=== PATIENT | female | born 1950 | race Caucasian/White ===

== ENCOUNTER → 2016-04-15 | Outpatient (CLI) | payer BC ==
--- NOTE | 2016-04-15 10:19 | DIAGNOSTIC IMAGING REPORT ---
Venous Doppler right leg RIGHT VENOUS DOPP LOWER EXT UNILAT CLINICAL HISTORY: R LOWER EXT DVT F/U Right deep venous thrombosis TECHNIQUE: Venous Doppler COMPARISON STUDY: 01/11/2016 FINDINGS: Current study shows no evidence for deep venous thrombosis. There continues be nonocclusive thrombus within the right superficial femoral vein and its proximal to mid aspect. IMPRESSION: 1. No evidence for acute deep venous thrombosis. 2. Chronic superficial thrombophlebitis right leg Electronically signed by: Sundar Golden M.D. 04/15/2016 10:18 AM Dictated Date/Time: 04/15/2016 10:16 AM
== END | disposition home or self-care (01) ==
LOC: C.ULTR 09:46
PROVIDERS: ATTEND Family Medicine
DX: I80.01 Phlebitis and thrombophlebitis of superficial vessels of right lower extremity (principal)

== ENCOUNTER → 2016-07-16 | Outpatient (CLI) | payer BC ==
--- NOTE | 2016-07-16 10:39 | DIAGNOSTIC IMAGING REPORT ---
RIGHT LOWER EXTREMITY VENOUS DOPPLER CLINICAL HISTORY: Follow up right lower extremity deep venous thrombus. COMPARISON STUDY: Right lower extremity venous Doppler April 15, 2016. TECHNIQUE: Sonography of the deep venous system of the right lower extremity was performed. Compression and augmentation were evaluated. FINDINGS: Nonocclusive thrombus within the right femoral vein is similar to exam of April 15, 2016. The vessels are not expanded. No additional sites of deep venous thrombus were identified within the right lower extremity.. IMPRESSION: 1. No evidence of acute deep venous thrombus within the right lower extremity. 2. No significant change in nonocclusive chronic thrombus within the right femoral vein since prior exam of April 15, 2016. Electronically signed by: Maik Valencia M.D. 07/16/2016 10:38 AM Dictated Date/Time: 07/16/2016 10:36 AM
== END | disposition home or self-care (01) ==
LOC: C.ULTR 09:51
PROVIDERS: ATTEND Family Medicine
DX: I82.4Z1 Acute embolism and thrombosis of unspecified deep veins of right distal lower extremity (principal)

== ENCOUNTER → 2016-10-04 | Outpatient (CLI) | payer BC ==
--- NOTE | 2016-10-04 13:34 | MAMMOGRAPHY REPORT ---
BILATERAL DIGITAL SCREENING MAMMOGRAM TOMOSYNTHESIS WITH CAD: 10/04/2016 CLINICAL HISTORY: Routine screening. Patient has no complaints. TECHNIQUE: Breast tomosynthesis in addition to standard 2D mammography was performed. Current study was also evaluated with a Computer Aided Detection (CAD) system. COMPARISON: Comparison is made to exams dated: 10/03/2015 mammogram, 09/30/2014 mammogram, 09/29/2013 m ammogram, 09/28/2012 mammogram, 09/25/2011 mammogram, and 09/06/2010 mammogram - [facility] enter. BREAST COMPOSITION: The tissue of both breasts is almost entirely fatty. FINDINGS: No suspicious masses, calcifications, or areas of architectural distortion are noted in ei ther breast. There has been no significant interval change compared to prior exams. IMPRESSION: ACR BI-RADS CATEGORY 1: NEGATIVE There is no mammographic evidence of malignancy. A 1 year screening mammogram is recommended. The pa tient will receive written notification of the results. Approximately 10% of breast cancers are not detected with mammography. A negative mammographic report should not delay biopsy if a clinically suggestive mass is present. Lupe Birmingham M.D. /:10/04/2016 12:30:28 Production Internship: Audrey HAMILTON(Nazario)(La[place])([place]), [facility] letter sent: Normal 1/2 BI-RADS Code: ACR BI-RADS Category 1: Negative
== END | disposition home or self-care (01) ==
LOC: C.MAMM 10:56
PROVIDERS: ATTEND Family Medicine
DX: Z12.31 Encounter for screening mammogram for malignant neoplasm of breast (principal)

== ENCOUNTER → 2016-11-28 | Outpatient (CLI) | payer BC | END | disposition home or self-care (01) | LOC: C.LABSPEC 11:03 | PROVIDERS: ATTEND Family Medicine | DX: N39.0 Urinary tract infection, site not specified (principal) ==

== ENCOUNTER → 2016-12-30 | Outpatient (CLI) | payer BC ==
--- NOTE | 2016-12-30 10:26 | DIAGNOSTIC IMAGING REPORT ---
ULTRASOUND RIGHT LOWER EXTREMITY VENOUS CLINICAL HISTORY: Follow-up right lower extremity deep venous thrombosis. COMPARISON STUDY: Right lower extremity venous ultrasound dated 07/16/2016. TECHNIQUE: Real-time, grayscale, and color Doppler sonography of the deep veins of the right lower extremity was performed from the inguinal crease to the calf. Compression and augmentation were utilized. FINDINGS: There is unchanged appearance of chronic appearing and nonocclusive deep venous thrombosis identified in the right common femoral vein and the right popliteal vein. The common femoral vein is patent and normally compressible. The greater saphenous vein and the profunda femoris vein at the junction with the common femoral vein are clear. The visualized calf veins are patent. IMPRESSION: There is unchanged appearance of nonocclusive and chronic appearing deep venous thrombosis in the right lower extremity as above compared to 07/16/2016. Electronically signed by: Gil Cuellar M.D. 12/30/2016 10:25 AM Dictated Date/Time: 12/30/2016 10:23 AM
== END | disposition home or self-care (01) ==
LOC: C.ULTR 09:45
PROVIDERS: ATTEND Family Medicine
DX: I82.401 Acute embolism and thrombosis of unspecified deep veins of right lower extremity (principal)

== ENCOUNTER → 2017-01-13 | Outpatient (CLI) | payer OTHER ==
[2017-01-13 12:04] LABS: BASO ABS # 0.07 K/uL (0-0.2); COMPLETE YES; EOS % 2.8 %; HEMATOCRIT 37.4 % (37-47); IG% 0.4 %; LYMPH % 26.9 %; LYMPH ABS # 1.92 K/uL (1.2-3.4); MEAN CELL VOLUME 91.4 fL (80-100); MEAN CORPUSCULAR HEMOGLOBIN 30.8 pg (25-34); MEAN CORPUSCULAR HGB CONC 33.7 g/dl (32-36); MEAN PLATELET VOLUME 11.1 fL (7.4-10.4); NEUT % 61.9 %; PLATELET COUNT 231 K/uL (130-400); RED BLOOD COUNT 4.09 M/uL (4.2-5.4); WHITE BLOOD COUNT 7.13 K/uL (4.8-10.8)
[2017-01-13 12:15] LABS: ESTIMATED AVERAGE GLUCOSE 114 mg/dl; HA1C FLAG Normal (Normal)
[2017-01-13 12:42] LABS: AST/SGOT 22 U/L (15-37); BLOOD UREA NITROGEN 22 mg/dl (7-18); BUN/CREATININE RATIO 17.4 (10-20); CALCIUM 9.9 mg/dl (8.5-10.1); CARBON DIOXIDE 31 mmol/L (21-32); CHLORIDE 100 mmol/L (98-107); CHOLESTEROL 160 mg/dl (0-200); CHOLESTEROL/HDL RATIO 1.9; CREATININE 1.24 mg/dl (0.60-1.20); GLUCOSE 93 mg/dl (70-99); HDL CHOLESTEROL 84 mg/dl; LDL CHOLESTEROL CALCULATED 61 mg/dl; POTASSIUM 3.9 mmol/L (3.5-5.1); SODIUM 133 mmol/L (136-145); TRIGLYCERIDES 76 mg/dl (0-150); URIC ACID 8.9 mg/dl (2.6-7.2); VERY LOW DENSITY LIPOPROT CALC 15 mg/dl
[2017-01-13 12:51] LABS: ALKALINE PHOSPHATASE 66 U/L (45-117); ALT/SGPT 34 U/L (12-78); TOTAL IRON BINDING CAPACITY 261 mcg/dl (250-450)
== END | disposition home or self-care (01) ==
LOC: C.LAB1850 10:32
PROVIDERS: ATTEND Family Medicine
DX: R73.09 Other abnormal glucose (principal); E55.9 Vitamin D deficiency, unspecified; D51.9 Vitamin B12 deficiency anemia, unspecified; E78.9 Disorder of lipoprotein metabolism, unspecified; R53.83 Other fatigue

== ENCOUNTER 2017-05-19 11:10 | Emergency (ER) | payer BC ==
[2017-05-19 11:26] VITALS: TEMP 36.7; Ht 165.1 cm
[2017-05-19] MEDS ORDERED: ASCOTAB PO (12:41)
[2017-05-19] MEDS ORDERED: ASPI81TA28 PO (12:41)
[2017-05-19] MEDS ORDERED: OMEG10007 PO (12:41)
[2017-05-19] MEDS ORDERED: BUPR-79 PO (12:41)
[2017-05-19] MEDS ORDERED: CALC600T9 PO (12:41)
[2017-05-19] MEDS ORDERED: MISCCAP52 PO (12:41)
[2017-05-19] MEDS ORDERED: DICL-201 PO (12:41)
[2017-05-19] MEDS ORDERED: LISI-788 PO (12:41)
[2017-05-19] MEDS ORDERED: LEVO175T PO (12:41)
[2017-05-19] MEDS ORDERED: COEN120C PO (12:41)
[2017-05-19] MEDS ORDERED: FLUO20CA35 PO (12:41)
[2017-05-19] MEDS ORDERED: RIVA1TAB4 PO (12:41)
[2017-05-19] MEDS ORDERED: POTA10TA PO (12:41)
[2017-05-19] MEDS ORDERED: ATOR10TA82 PO (12:41)
[2017-05-19] MEDS ORDERED: SPECTAB57 PO (12:41)
[2017-05-19] MEDS ORDERED: MoRPHine SULFATE 4 MG/ML 1 ML CARP\\VIAL IV STA (13:41)
[2017-05-19] MEDS ORDERED: ONDANSETRON INJ 2 MG/ML 2 ML VIAL IV STA (13:41)
--- NOTE | 2017-05-19 13:41 | EMERGENCY ROOM VISIT NOTE ---
History Report prepared by Hipolito: Jagdeep Lopez Under the Supervision of: Dr. Jan Corbin M.D. First contact with patient: 13:15 Chief Complaint: FALL Stated Complaint: DIZZINESS, NAUSEA, HEAD INJURY, RIB PAIN History of Present Illness The patient is a 67 year old white with a past medical history of hypertension who presents to the Emergency Room with complaints of head pain and dizziness that first onset following a falling episode on Friday afternoon, 2 days ago. The patient states that she suffered a mechanical fall as she was trying to walk down her steps. She fell down 2 stairs and impacted her right ribs on the railing, and the back of her head on the ground. Her rib pain is worsened by deep inhalation. When she woke up this morning she was nauseous and vomited the food she ate for breakfast. The patient is currently complaining of dizziness as well. She is on Xarelto daily as a blood thinner. 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 A total of ten systems were reviewed and were otherwise negative. Past Medical & Surgical Medical Problems: (1) Hypertension Hypertension Family History Omitted secondary to age. Social History Smoking Status: Never Smoker Housing Status: lives with family Occupation Status: retired Current/Historical Medications Scheduled Ascorbic Acid (C 500), 1 TAB PO DAILY Aspirin (Aspirin Ec), 81 MG PO DAILY Atorvastatin (Lipitor), 10 MG PO DAILY Bupropion (Wellbutrin Sr), 150 MG PO BID Calcium Carbonate-Vitamin D (Calcium + D), 2 TAB PO DAILY Coenzyme Q10 (Ubidecarenone) (Co Q-10), 1 CAP PO BID Diclofenac (Voltaren), 75 MG PO DAILY Fish Oil ([place]-3), 1 CAP PO DAILY Fluoxetine (Prozac), 20 MG PO BID Levothyroxine Sodium (Synthroid), 175 MCG PO DAILY Lisinopril/Hctz (Zestoretic 20MG/25MG), 1 TAB PO DAILY Misc Natural Products (Turmeric Curcumin), 1 CAP PO BID Potassium Chloride (K-Tabs), 10 MEQ PO DAILY Rivaroxaban (Xarelto), 20 MG PO DAILY Specialty Vitamins Products (Ultra Woman), 1 TAB PO DAILY Scheduled PRN Oxycodone Immediate Rel Tab (Roxicodone Ir), 5 MG PO Q6H PRN for Pain Allergies Coded Allergies: Penicillins (Unverified Adverse Reaction, Intermediate, ITCHY, 05/19/17) Physical Exam Vital Signs Date Time Temp Pulse Resp B/P (MAP) Pulse Ox O2 Delivery O2 Flow Rate FiO2 05/19/17 17:35 80 24 131/65 96 05/19/17 17:30 80 24 131/65 96 Room Air 05/19/17 16:33 74 24 126/77 92 Room Air 05/19/17 16:15 66 22 121/67 97 Room Air 05/19/17 15:29 63 18 114/78 95 Room Air 05/19/17 14:09 67 05/19/17 14:07 63 19 154/79 94 05/19/17 14:07 96 Room Air 05/19/17 11:26 36.7 66 18 135/83 95 Room Air Physical Exam GENERAL: Awake, alert, well-appearing, NAD HENT: There is mild pain to the right parietal area. EYES: Normal conjunctiva. Sclera non-icteric. NECK: Supple. No nuchal rigidity. FROM. RESPIRATORY: CTAB, no rhonchi, wheezing, crackles CARDIAC: RRR, no MRG ABDOMEN: Soft, NTND, BS+ MSK: No chest wall TTP, no LE edema. There is no midline c-spine TTP, there is mild reproducible right sided rib pain. NEURO: GCS 15, CN 2-12 intact, moves all 4s on command SKIN: No rash or jaundice noted. Medical Decision & Procedures ER Provider Diagnostic Interpretation: Radiology results as stated below per my review and radiologist interpretation: CT SCAN OF THE CERVICAL SPINE CLINICAL HISTORY: Fall. COMPARISON STUDY: No priors. TECHNIQUE: CT scan of the cervical spine is performed from the skull base to the upper thoracic spine. Images are reviewed in the axial, sagittal, and coronal planes. IV contrast was not administered for this examination. A dose lowering technique was utilized adhering to the principles of ALARA. CT DOSE: 3812.99 mGy.cm FINDINGS: Skeletal structures: The skeletal structures are osteopenic. There is no evidence of fracture or subluxation involving the cervical spine. Vertebral body height and alignment are maintained. There is straightening of the cervical lordosis. The odontoid process and lateral masses are intact. The atlantoaxial articulation is preserved noting minimal productive degenerative change. The spinous processes appear intact. There is mild to moderate multilevel cervical spondylosis. Uncovertebral and facet arthropathy. Neural foraminal stenosis at several levels. Intervertebral discs: The disc spaces are well maintained. Central canal: Grossly patent. Soft tissues: The prevertebral and paraspinous soft tissues are within normal limits. Atherosclerotic calcification is noted in the carotid bulbs. Calvarium: The visualized calvarium at the skull base appears intact. Brain parenchyma: Partially visualized brain parenchyma the skull base is within normal limits. Sinuses and mastoids: The visualized paranasal sinuses are clear. The mastoid air cells are well pneumatized. Lung apices: Clear as visualized. IMPRESSION: 1. There is no evidence of fracture or subluxation involving the cervical spine. 2. Osteopenia and mild spondylotic change as above. Electronically signed by: Gil Cuellar M.D. 05/19/2017 4:18 PM Dictated Date/Time: 05/19/2017 4:[address] SCAN OF THE CHEST, ABDOMEN, AND PELVIS WITH IV CONTRAST CLINICAL HISTORY: Trauma. Fall. COMPARISON STUDY: No priors. TECHNIQUE: Following the IV administration of 90 of Optiray 320, CT scan of the chest, abdomen, and pelvis was performed from the thoracic inlet to the proximal femora. Images are reviewed in the axial, sagittal, and coronal planes. IV contrast was administered without complication. Automated dose control exposure was utilized. A dose lowering technique was utilized adhering to the principles of ALARA. The examination is degraded by streak artifact from the patient's arms which could not be elevated above the chest or abdomen. FINDINGS: CHEST: Thyroid: Imaged portions of the thyroid gland are normal in size and attenuation. Thoracic aorta: There is mild atherosclerotic calcification of the thoracic aorta, which is normal in caliber and demonstrates standard 3-vessel arch anatomy. No dissection is seen. Pulmonary vasculature: The pulmonary trunk is normal in caliber. There are no filling defects identified in the central pulmonary vessels to indicate pulmonary embolus. Note that this examination was not protocoled for evaluation of the pulmonary arteries. Heart: The heart is normal in size and configuration, and without pericardial effusion. There are coronary artery calcifications. Lungs and pleural spaces: Evaluation of the lung parenchyma is modestly degraded by motion artifact. Mild emphysema is suggested. There is mild elevation of right hemidiaphragm and bibasilar atelectasis. No airspace consolidation, pleural effusion, or pneumothorax is identified. Mediastinum: There is no mediastinal hematoma or lymphadenopathy. Cristine: Clear. Axillae: There is no axillary lymphadenopathy. Bony thorax: The skeletal structures are osteopenic. There are acute nondistracted right lateral 7th through 9th rib fractures. The remainder of the bony thorax appears intact. No lytic or blastic lesions are identified. ABDOMEN AND PELVIS: Liver: The contrast-enhanced liver is normal in size, contour, and attenuation. There is mild central intrahepatic or ductal dilatation. The hepatic veins and portal veins are patent. Gallbladder: Surgically absent noting clips in the gallbladder fossa. Spleen: Normal in size and attenuation. Pancreas: Unremarkable. Adrenal glands: Unremarkable. Kidneys: The contrast enhanced kidneys demonstrate cortical atrophy and are without hydronephrosis. The kidneys enhance symmetrically. Abdominal vasculature: The abdominal aorta is normal in course and caliber noting moderate atherosclerotic calcification. Stomach and bowel: There is a tiny hiatal hernia. The stomach and duodenum otherwise normal in configuration. No bowel obstruction is seen. There are scattered colonic diverticula without CT evidence of acute diverticulitis. The appendix is well-visualized and normal. Peritoneum: There is no intraperitoneal free air or abdominal ascites. Lymphadenopathy: None. Pelvic viscera: The bladder, uterus, and adnexa are normal as visualized. Skeletal structures: The skeletal structures are osteopenic. The lumbosacral spine and bony pelvis appear intact. There is mild lumbosacral spondylosis. No lytic or blastic lesions are seen. IMPRESSION: 1. There are acute nondistracted right lateral 7th through 9th rib fractures. 2. No additional fracture is seen. 3. The lungs are clear. No pneumothorax is seen. 4. Suspect mild emphysema. 5. There is no evidence of solid organ injury in the abdomen or pelvis. 6. Additional findings as above. Electronically signed by: Gil Cuellar M.D. 05/19/2017 4:29 PM Dictated Date/Time: 05/19/2017 4:[address] SCAN OF THE CHEST, ABDOMEN, AND PELVIS WITH IV CONTRAST CLINICAL HISTORY: Trauma. Fall. COMPARISON STUDY: No priors. TECHNIQUE: Following the IV administration of 90 of Optiray 320, CT scan of the chest, abdomen, and pelvis was performed from the thoracic inlet to the proximal femora. Images are reviewed in the axial, sagittal, and coronal planes. IV contrast was administered without complication. Automated dose control exposure was utilized. A dose lowering technique was utilized adhering to the principles of ALARA. The examination is degraded by streak artifact from the patient's arms which could not be elevated above the chest or abdomen. FINDINGS: CHEST: Thyroid: Imaged portions of the thyroid gland are normal in size and attenuation. Thoracic aorta: There is mild atherosclerotic calcification of the thoracic aorta, which is normal in caliber and demonstrates standard 3-vessel arch anatomy. No dissection is seen. Pulmonary vasculature: The pulmonary trunk is normal in caliber. There are no filling defects identified in the central pulmonary vessels to indicate pulmonary embolus. Note that this examination was not protocoled for evaluation of the pulmonary arteries. Heart: The heart is normal in size and configuration, and without pericardial effusion. There are coronary artery calcifications. Lungs and pleural spaces: Evaluation of the lung parenchyma is modestly degraded by motion artifact. Mild emphysema is suggested. There is mild elevation of right hemidiaphragm and bibasilar atelectasis. No airspace consolidation, pleural effusion, or pneumothorax is identified. Mediastinum: There is no mediastinal hematoma or lymphadenopathy. Cristine: Clear. Axillae: There is no axillary lymphadenopathy. Bony thorax: The skeletal structures are osteopenic. There are acute nondistracted right lateral 7th through 9th rib fractures. The remainder of the bony thorax appears intact. No lytic or blastic lesions are identified. ABDOMEN AND PELVIS: Liver: The contrast-enhanced liver is normal in size, contour, and attenuation. There is mild central intrahepatic or ductal dilatation. The hepatic veins and portal veins are patent. Gallbladder: Surgically absent noting clips in the gallbladder fossa. Spleen: Normal in size and attenuation. Pancreas: Unremarkable. Adrenal glands: Unremarkable. Kidneys: The contrast enhanced kidneys demonstrate cortical atrophy and are without hydronephrosis. The kidneys enhance symmetrically. Abdominal vasculature: The abdominal aorta is normal in course and caliber noting moderate atherosclerotic calcification. Stomach and bowel: There is a tiny hiatal hernia. The stomach and duodenum otherwise normal in configuration. No bowel obstruction is seen. There are scattered colonic diverticula without CT evidence of acute diverticulitis. The appendix is well-visualized and normal. Peritoneum: There is no intraperitoneal free air or abdominal ascites. Lymphadenopathy: None. Pelvic viscera: The bladder, uterus, and adnexa are normal as visualized. Skeletal structures: The skeletal structures are osteopenic. The lumbosacral spine and bony pelvis appear intact. There is mild lumbosacral spondylosis. No lytic or blastic lesions are seen. IMPRESSION: 1. There are acute nondistracted right lateral 7th through 9th rib fractures. 2. No additional fracture is seen. 3. The lungs are clear. No pneumothorax is seen. 4. Suspect mild emphysema. 5. There is no evidence of solid organ injury in the abdomen or pelvis. 6. Additional findings as above. Electronically signed by: Gil Cuellar M.D. 05/19/2017 4:29 PM Dictated Date/Time: 05/19/2017 4:15 PM HEAD WITHOUT CONTRAST (CT) CLINICAL HISTORY: 67 years-old Female with EVALUATE FOR TRAUMA/INJURY. Acute head trauma status post fall TECHNIQUE: Multiple axial CT images of the head were obtained without contrast. A dose lowering technique was utilized adhering to the principles of ALARA. COMPARISON: CT cervical spine of same day FINDINGS: No acute intracranial hemorrhage, midline shift, intracranial mass, hydrocephalus, territorial ischemia or abnormal extra-axial collection. The calvarium is intact. Mastoid air cells are clear. Mild mucosal thickening of the ethmoid air cells. Soft tissues and orbits are unremarkable. IMPRESSION: No acute intracranial abnormality or calvarial fracture. The above report was generated using voice recognition software. It may contain grammatical, syntax or spelling errors. Electronically signed by: Ezra Cruz M.D. 05/19/2017 4:10 PM Dictated Date/Time: 05/19/2017 4:07 PM Laboratory Results 05/19/17 14:03 Red Blood Count 4.17, Mean Corpuscular Volume 89.9, Mean Corpuscular Hemoglobin 31.4, Mean Corpuscular Hemoglobin Concent 34.9, Mean Platelet Volume 10.6, Neutrophils (%) (Auto) 86.5, Lymphocytes (%) (Auto) 9.2, Monocytes (%) (Auto) 3.2, Eosinophils (%) (Auto) 0.4, Basophils (%) (Auto) 0.4, Neutrophils # (Auto) 9.74, Lymphocytes # (Auto) 1.03, Monocytes # (Auto) 0.36, Eosinophils # (Auto) 0.04, Basophils # (Auto) 0.04 05/19/17 14:03 Test 4/9/18 14:03 05/19/17 15:35 White Blood Count 11.24 K/uL (4.8-10.8) Red Blood Count 4.17 M/uL (4.2-5.4) Hemoglobin 13.1 g/dL (12.0-16.0) Hematocrit 37.5 % (37-47) Mean Corpuscular Volume 89.9 fL (80-100) Mean Corpuscular Hemoglobin 31.4 pg (25-34) Mean Corpuscular Hemoglobin Concent 34.9 g/dl (32-36) Platelet Count 241 K/uL (130-400) Mean Platelet Volume 10.6 fL (7.4-10.4) Neutrophils (%) (Auto) 86.5 % Lymphocytes (%) (Auto) 9.2 % Monocytes (%) (Auto) 3.2 % Eosinophils (%) (Auto) 0.4 % Basophils (%) (Auto) 0.4 % Neutrophils # (Auto) 9.74 K/uL (1.4-6.5) Lymphocytes # (Auto) 1.03 K/uL (1.2-3.4) Monocytes # (Auto) 0.36 K/uL (0.11-0.59) Eosinophils # (Auto) 0.04 K/uL (0-0.5) Basophils # (Auto) 0.04 K/uL (0-0.2) RDW Standard Deviation 40.9 fL (36.4-46.3) RDW Coefficient of Variation 12.5 % (11.5-14.5) Immature Granulocyte % (Auto) 0.3 % Immature Granulocyte # (Auto) 0.03 K/uL (0.00-0.02) Prothrombin Time 12.7 SECONDS (9.0-12.0) Prothromb Time International Ratio 1.2 (0.9-1.1) Activated Partial Thromboplast Time 31.2 SECONDS (21.0-31.0) Partial Thromboplastin Ratio 1.2 Anion Gap 7.0 mmol/L (3-11) Estimated GFR () 66.8 Estimated GFR (Non- 57.7 BUN/Creatinine Ratio 18.3 (10-20) Calcium Level 9.9 mg/dl (8.5-10.1) Total Bilirubin 0.8 mg/dl (0.2-1) Direct Bilirubin 0.1 mg/dl (0-0.2) Aspartate Amino Transf (AST/SGOT) 21 U/L (15-37) Alanine Aminotransferase (ALT/SGPT) 34 U/L (12-78) Alkaline Phosphatase 67 U/L (45-117) Total Protein 7.5 gm/dl (6.4-8.2) Albumin 3.6 gm/dl (3.4-5.0) Urine Color YELLOW Urine Appearance CLEAR (CLEAR) Urine pH 7.5 (4.5-7.5) Urine Specific [place] 1.018 (1.000-1.030) Urine Protein NEG (NEG) Urine Glucose (UA) NEG (NEG) Urine Ketones NEG (NEG) Urine Occult Blood NEG (NEG) Urine Nitrite NEG (NEG) Urine Bilirubin NEG (NEG) Urine Urobilinogen NEG (NEG) Urine Leukocyte Esterase NEG (NEG) Laboratory results reviewed by me Medications Administered Medications (Trade) Dose Ordered Sig/Mark Route Start Time Stop Time Status Last Admin Dose Admin Morphine Sulfate (MoRPHine SULFATE INJ) 4 mg NOW STAT IV 05/19/17 13:41 05/19/17 13:44 DC 05/19/17 14:27 4 MG Ondansetron HCl (Zofran Inj) 4 mg NOW STAT IV 05/19/17 13:41 05/19/17 13:44 DC 05/19/17 14:26 4 MG Acetaminophen/ Hydrocodone Bitart (Shafter 5/325 Tab) 1 tab ONE STAT PO 05/19/17 16:15 05/19/17 16:23 DC 05/19/17 16:32 1 TAB Tramadol HCl (Ultram Tab) 25 mg NOW STAT PO 05/19/17 16:15 05/19/17 16:23 DC 05/19/17 16:31 25 MG ED Course 1325: The patient was evaluated in room A3. A complete history and physical exam was performed. 1712: I reevaluated the patient. Discussed results and discharge instructions: She verbalized understanding and agreement. The patient is ready for discharge. Medical Decision he patient is a 67 year old white with a past medical history of hypertension who presents to the Emergency Room with complaints of head pain and dizziness that first onset following a falling episode on Friday afternoon, 2 days ago Differential diagnosis: Etiologies such as fracture, dislocation, intra-abdominal, pneumothorax, intrathoracic , intracranial, neurologic, as well as other traumatic pathologies were entertained. Patient was seen and evaluated the bedside. Patient did have a fall that was mechanical without any LOC down to small stairs with associated striking of her head. Patient also did complain of some right-sided rib pain. Patient does have pain with inspiration. Patient denies any hemoptysis. 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 The patient did complain of some lightheadedness this morning but sounds positional in nature. She did have some associated nausea with vomiting 1. On exam the patient is a nonfocal neurologic exam the patient does have some right-sided chest wall pain without any obvious ecchymosis. Difficult to differentiate whether this is just chest wall discomfort or if she has intra-abdominal discomfort also. Patient did have blood work completed along with a CT of the head, C-spine, chest abdomen and pelvis. Patient's blood work is fairly unremarkable. The patient's CTs only showed acute nondisplaced right seventh through ninth rib fractures. The patient is breathing well and the patient is not tachypneic, tachycardic, or in respiratory distress. Patient was given additional in all pain medication for home and was given incentive spirometer. Patient was deemed suitable for outpatient follow-up and treatment at this time. Patient was given strict follow-up, discharge, and return precautions. All questions were answered. Patient was deemed suitable for outpatient follow-up at this time. Patient agreed with the plan of care and was safely discharged home. Medication Reconcilliation Current Medication List: was personally reviewed by me Blood Pressure Screening Patient's blood pressure: Normal blood pressure Impression Primary Impression: Fall Additional Impression: Ribs, multiple fractures Scribe Attestation The scribe's documentation has been prepared under my direction and personally reviewed by me in its entirety. I confirm that the note above accurately reflects all work, treatment, procedures, and medical decision making performed by me. Departure Information Dispostion Home / Self-Care Prescriptions Oxycodone Immediate Rel Tab (ROXICODONE IR) 5 Mg Tab 5 MG PO Q6H Y for Pain, #12 TAB Prov: Jan Corbin M.D. 05/19/17 Referrals Herrera Najera M.D. (PCP) Patient Instructions ED Fx Rib, My [facility] Additional Instructions Please return to the emergency department if you have worsening or recurrent symptoms not amenable to at-home treatment. Please call for a follow-up appointment with her primary care physician. Please take your medications as prescribed. If you have other concerns and/or complaints please feel free to also call your primary care physician's office or return the ED for further evaluation, management, and treatment. You received narcotic or benzodiazepene medication while in the emergency room today. This is an addictive medication that may cause drowziness as well as constipation. Do not drive, operate heavy machinery, or drink alcohol under the influence of this medication. You may take tylenol 650 mg every 6 hours as needed for pain. If you still have pain you may use the oxycodone. Use w/ caution as this is a habit forming drug and may cause breathing problems. Take only as prescribed. Use your incentive spirometry 10 breathes approximately 6 times per day. Take your medications as prescribed. You have been examined and treated today on an emergency basis only. This is not a substitute for, or an effort to provide, complete comprehensive medical care. It is impossible to recognize and treat all injuries or illnesses in a single emergency department visit. It is therefore important that you follow up closely with [facility], your PCP, and/or your specialist(s). Call as soon as possible for an appointment. Thank you for your time and consideration. I look forward to speaking with you again soon. Please don't hesitate to call us if you have any questions. Problem Qualifiers Primary Impression: Fall Encounter type: initial encounter Qualified Codes: W19.XXXA - Unspecified fall, initial encounter Additional Impression: Ribs, multiple fractures Encounter type: initial encounter Fracture type: closed Laterality: right Qualified Codes: S22.41XA - Multiple fractures of ribs, right side, initial encounter for closed fracture
[2017-05-19] MEDS ORDERED: OPTIRAY 320 IV PRN (13:45)
[2017-05-19 14:07] VITALS: O2SAT 96
[2017-05-19 14:24] LABS: BASO % 0.4 %; BASO ABS # 0.04 K/uL (0-0.2); EOS % 0.4 %; EOS ABS # 0.04 K/uL (0-0.5); HEMATOCRIT 37.5 % (37-47); HEMOGLOBIN 13.1 g/dL (12.0-16.0); IG# 0.03 K/uL (0.00-0.02); LYMPH % 9.2 %; LYMPH ABS # 1.03 K/uL (1.2-3.4); MEAN CELL VOLUME 89.9 fL (80-100); MEAN CORPUSCULAR HEMOGLOBIN 31.4 pg (25-34); MEAN CORPUSCULAR HGB CONC 34.9 g/dl (32-36); MEAN PLATELET VOLUME 10.6 fL (7.4-10.4); MONO % 3.2 %; MONO ABS # 0.36 K/uL (0.11-0.59); NEUT % 86.5 %; NEUT ABS # 9.74 K/uL (1.4-6.5); PLATELET COUNT 241 K/uL (130-400); RED CELL DISTRIBUTION WIDTH CV 12.5 % (11.5-14.5); RED CELL DISTRIBUTION WIDTH SD 40.9 fL (36.4-46.3); WHITE BLOOD COUNT 11.24 K/uL (4.8-10.8)
[2017-05-19 14:36] LABS: INR 1.2 (0.9-1.1); PTT PATIENT 31.2 SECONDS (21.0-31.0)
[2017-05-19 14:46] LABS: ALBUMIN 3.6 gm/dl (3.4-5.0); ALT/SGPT 34 U/L (12-78); AST/SGOT 21 U/L (15-37); BLOOD UREA NITROGEN 19 mg/dl (7-18); CALCIUM 9.9 mg/dl (8.5-10.1); CARBON DIOXIDE 29 mmol/L (21-32); CREATININE 1.02 mg/dl (0.60-1.20); GLUCOSE 121 mg/dl (70-99); POTASSIUM 3.6 mmol/L (3.5-5.1); SODIUM 137 mmol/L (136-145)
[2017-05-19 14:48] LABS: ALKALINE PHOSPHATASE 67 U/L (45-117); TOTAL PROTEIN 7.5 gm/dl (6.4-8.2)
--- NOTE | 2017-05-19 16:11 | DIAGNOSTIC IMAGING REPORT ---
HEAD WITHOUT CONTRAST (CT) CLINICAL HISTORY: 67 years-old Female with EVALUATE FOR TRAUMA/INJURY. Acute head trauma status post fall TECHNIQUE: Multiple axial CT images of the head were obtained without contrast. A dose lowering technique was utilized adhering to the principles of ALARA. COMPARISON: CT cervical spine of same day FINDINGS: No acute intracranial hemorrhage, midline shift, intracranial mass, hydrocephalus, territorial ischemia or abnormal extra-axial collection. The calvarium is intact. Mastoid air cells are clear. Mild mucosal thickening of the ethmoid air cells. Soft tissues and orbits are unremarkable. IMPRESSION: No acute intracranial abnormality or calvarial fracture. The above report was generated using voice recognition software. It may contain grammatical, syntax or spelling errors. Electronically signed by: Ezra Cruz M.D. 05/19/2017 4:10 PM Dictated Date/Time: 05/19/2017 4:07 PM
[2017-05-19] MEDS ORDERED: TRAMADOL HCL 50 MG TAB PO STA (16:15)
[2017-05-19] MEDS ORDERED: HYDROCODONE/ACETAMIN 5/325MG TAB PO STA (16:15)
--- NOTE | 2017-05-19 16:19 | DIAGNOSTIC IMAGING REPORT ---
CT SCAN OF THE CERVICAL SPINE CLINICAL HISTORY: Fall. COMPARISON STUDY: No priors. TECHNIQUE: CT scan of the cervical spine is performed from the skull base to the upper thoracic spine. Images are reviewed in the axial, sagittal, and coronal planes. IV contrast was not administered for this examination. A dose lowering technique was utilized adhering to the principles of ALARA. CT DOSE: 3812.99 mGy.cm FINDINGS: Skeletal structures: The skeletal structures are osteopenic. There is no evidence of fracture or subluxation involving the cervical spine. Vertebral body height and alignment are maintained. There is straightening of the cervical lordosis. The odontoid process and lateral masses are intact. The atlantoaxial articulation is preserved noting minimal productive degenerative change. The spinous processes appear intact. There is mild to moderate multilevel cervical spondylosis. Uncovertebral and facet arthropathy. Neural foraminal stenosis at several levels. Intervertebral discs: The disc spaces are well maintained. Central canal: Grossly patent. Soft tissues: The prevertebral and paraspinous soft tissues are within normal limits. Atherosclerotic calcification is noted in the carotid bulbs. Calvarium: The visualized calvarium at the skull base appears intact. Brain parenchyma: Partially visualized brain parenchyma the skull base is within normal limits. Sinuses and mastoids: The visualized paranasal sinuses are clear. The mastoid air cells are well pneumatized. Lung apices: Clear as visualized. IMPRESSION: 1. There is no evidence of fracture or subluxation involving the cervical spine. 2. Osteopenia and mild spondylotic change as above. Electronically signed by: Gil Cuellar M.D. 05/19/2017 4:18 PM Dictated Date/Time: 05/19/2017 4:14 PM
--- NOTE | 2017-05-19 16:31 | DIAGNOSTIC IMAGING REPORT ---
CT SCAN OF THE CHEST, ABDOMEN, AND PELVIS WITH IV CONTRAST CLINICAL HISTORY: Trauma. Fall. COMPARISON STUDY: No priors. TECHNIQUE: Following the IV administration of 90 of Optiray 320, CT scan of the chest, abdomen, and pelvis was performed from the thoracic inlet to the proximal femora. Images are reviewed in the axial, sagittal, and coronal planes. IV contrast was administered without complication. Automated dose control exposure was utilized. A dose lowering technique was utilized adhering to the principles of ALARA. The examination is degraded by streak artifact from the patient's arms which could not be elevated above the chest or abdomen. FINDINGS: CHEST: Thyroid: Imaged portions of the thyroid gland are normal in size and attenuation. Thoracic aorta: There is mild atherosclerotic calcification of the thoracic aorta, which is normal in caliber and demonstrates standard 3-vessel arch anatomy. No dissection is seen. Pulmonary vasculature: The pulmonary trunk is normal in caliber. There are no filling defects identified in the central pulmonary vessels to indicate pulmonary embolus. Note that this examination was not protocoled for evaluation of the pulmonary arteries. Heart: The heart is normal in size and configuration, and without pericardial effusion. There are coronary artery calcifications. Lungs and pleural spaces: Evaluation of the lung parenchyma is modestly degraded by motion artifact. Mild emphysema is suggested. There is mild elevation of right hemidiaphragm and bibasilar atelectasis. No airspace consolidation, pleural effusion, or pneumothorax is identified. Mediastinum: There is no mediastinal hematoma or lymphadenopathy. Cristine: Clear. Axillae: There is no axillary lymphadenopathy. Bony thorax: The skeletal structures are osteopenic. There are acute nondistracted right lateral 7th through 9th rib fractures. The remainder of the bony thorax appears intact. No lytic or blastic lesions are identified. ABDOMEN AND PELVIS: Liver: The contrast-enhanced liver is normal in size, contour, and attenuation. There is mild central intrahepatic or ductal dilatation. The hepatic veins and portal veins are patent. Gallbladder: Surgically absent noting clips in the gallbladder fossa. Spleen: Normal in size and attenuation. Pancreas: Unremarkable. Adrenal glands: Unremarkable. Kidneys: The contrast enhanced kidneys demonstrate cortical atrophy and are without hydronephrosis. The kidneys enhance symmetrically. Abdominal vasculature: The abdominal aorta is normal in course and caliber noting moderate atherosclerotic calcification. Stomach and bowel: There is a tiny hiatal hernia. The stomach and duodenum otherwise normal in configuration. No bowel obstruction is seen. There are scattered colonic diverticula without CT evidence of acute diverticulitis. The appendix is well-visualized and normal. Peritoneum: There is no intraperitoneal free air or abdominal ascites. Lymphadenopathy: None. Pelvic viscera: The bladder, uterus, and adnexa are normal as visualized. Skeletal structures: The skeletal structures are osteopenic. The lumbosacral spine and bony pelvis appear intact. There is mild lumbosacral spondylosis. No lytic or blastic lesions are seen. IMPRESSION: 1. There are acute nondistracted right lateral 7th through 9th rib fractures. 2. No additional fracture is seen. 3. The lungs are clear. No pneumothorax is seen. 4. Suspect mild emphysema. 5. There is no evidence of solid organ injury in the abdomen or pelvis. 6. Additional findings as above. Electronically signed by: Gil Cuellar M.D. 05/19/2017 4:29 PM Dictated Date/Time: 05/19/2017 4:15 PM
[2017-05-19] MEDS ORDERED: OXYC1TAB3 PO (17:26)
[2017-05-19 17:35] VITALS: BP 131/65; PULSE 80; O2SAT 96
== END 2017-05-19 17:35 | disposition home or self-care (01) ==
LOC: C.EDB 11:13 → C.EDA 17:35
DX: S09.90XA Unspecified injury of head, initial encounter (principal); S22.41XA Multiple fractures of ribs, right side, initial encounter for closed fracture; R42 Dizziness and giddiness; W10.9XXA Fall (on) (from) unspecified stairs and steps, initial encounter; Y92.89 Other specified places as the place of occurrence of the external cause; M85.88 Other specified disorders of bone density and structure, other site; R11.0 Nausea; I10 Essential (primary) hypertension; Z79.01 Long term (current) use of anticoagulants; Z79.899 Other long term (current) drug therapy; Z88.0 Allergy status to penicillin

== ENCOUNTER 2021-12-05 15:24 | Observation (INO) ==
[2021-12-05 16:25] LABS: Basophils # (auto) 0.07 K/uL (0-0.2); Basophils % (auto) 0.6 %; Eosinophils # (auto) 0.41 K/uL (0-0.50); Eosinophils % (auto) 3.7 %; Hematocrit (blood only) 34.9 % (34.1-44.9); Hemoglobin 12.1 g/dl (12.0-16.0); Immature Granulocytes # (auto) 0.14 K/uL (0.00-0.02); Immature Granulocytes % (auto) 1.2 %; Lymphocytes # (auto) 1.75 K/uL (1.2-3.4); Lymphocytes % (auto) 15.6 %; Mean Corpuscular Hemoglobin 32.1 pg (25.0-34.0); Mean Corpuscular Hgb Conc 34.7 g/dL (32.0-36.0); Mean Corpuscular Volume 92.6 fL (80.0-100.0); Monocytes # (auto) 0.85 K/uL (0.24-0.82); Monocytes % (auto) 7.6 %; Neutrophils % (auto) 71.3 %; Platelet Count 192 K/uL (130-400); RDW Coefficient of Variation 13.1 % (11.5-14.5); RDW Standard Deviation 43.8 fL (36.4-46.3); Red Blood Count 3.77 M/uL (3.93-5.22); White Blood Count 11.22 K/ul (4.8-10.8)
--- NOTE | 2021-12-05 16:42 | Emergency Department Note ---
Impression & Plan Localized swelling of both lower legs, Chronic dyspnea, History of incisional hernia repair ED Provider Note NAME: HARIS LEIGH AGE: 71 SEX: F : 1950 ARRIVES VIA: Walk-In INFORMANT: Patient, ED PROVIDER(S): Jan Corbin MD Chief Complaint: Leg swelling HPI: Patient presents due to concern for bilateral lower extremity swelling which she states left is greater than right. The patient did recently have an incisional hernia repair that was completed at [facility] by Dr. Garcia. The patient states that the procedure he was completed last and was discharged yesterday. Patient states that she been off her Xarelto for 1 week and restarted yesterday. The patient was receiving "shots" in the hospital to help prevent DVT. Patient denies any chest pains. The patient does have chronic shortness of breath at baseline which he states is unchanged and no cough or fever. The patient has noted worsening leg swelling and believes that she gained 13 pounds during her hospitalization. Patient does have a prior history of DVT in the right lower extremity and is on Xarelto. Patient is not on a diuretic. Patient does have some mild abdominal discomfort but in light of her recent procedure believes that she is doing well. No issues with the surgical incisional sites and the patient is wearing an abdominal binder. The patient did have [address] 1 of which was taken out several days ago and the other taken out yesterday. Patient was seen by Dr. Garcia back in August he noted that the patient did have an incisional hernia on exam and CT had recommended repair. ROS: See HPI for pertinent positives and negatives. A total of 10 systems were reviewed and otherwise negative. Past medical history: See below Surgical history: See below Social history: See below Physical Exam: GENERAL: NAD, wearing a mask, non-toxic. EYE EXAM: Normal conjunctiva. PERRL, no anisocoria and EOM's grossly intact w/o pain. NECK: Supple, no nuchal rigidity, no adenopathy, non-tender. No signs of meningismus. FROM of the neck with good chin to chest and neck extension. No stridor. LUNGS: Clear to auscultation. Normal chest wall mechanics. HEART: NSR, no MRG. ABDOMEN: Abdomen soft, abdominal binder in place, midline incisional site without overlying redness drainage or crepitus, normo-active bowel sounds, no masses, no rebound or guarding. BACK: No CVA TTP. SKIN: Bruising noted to the lower abdomen without TTP, midline incisional site well-appearing UPPER EXTREMITIES: Upper extremities are grossly normal. LOWER EXTREMITIES: Grossly normal, 3+ symmetric lower extremity edema without any calf pain. No crepitus neurovascularly intact distally. NEURO EXAM: A&O x3, cranial nerves II-XII grossly intact, normal speech, moves all 4 extremities. Differential diagnoses: DVT, musculoskeletal, infection, joint effusion, trauma, lymphedema, idiopathic, CHF, as well as other pathologies. Course: Patient was seen and evaluated the bedside. Full history physical exam was p erformed. EKG interpreted by me Normal sinus rhythm, rate 96, normal intervals, normal axis no ST elevations, T wave version in V3. T wave version in lead III as well Imaging Studies: See Below Cardiac monitoring: An order was placed for continuous cardiac monitoring. The monitor shows a rate of 88 with sinus rhythm. MDM: Patient was seen due to concern for bilateral lower extremity swelling. Blood work was obtained along with a BNP and troponin. The patient is a chronic shortness of breath which is unchanged from prior. Patient did have bilateral lower extremity ultrasounds completed. Patient is a white count of 11 but denies any infectious symptoms. Has a normal H&H and platelet count. Kidney function is unremarkable. BNP is elevated troponin not elevated. Urinalysis with no signs of infection. COVID-negative. Venous Doppler shows chronic appearing nonocclusive DVT in the right lower extremity which is similar from 2017. The patient's chest x-ray shows cardiomegaly. Patient also has associated emphysema but no active disease. Given the patient's leg swelling and weight gain per review of the patient's prior weight and 3-4+ pitting edema believe the patient would benefit from inpatient treatment diuresis and possible echo. I did speak the on-call hospitalist Dr. Hartmann the patient was admitted to the medicine service. 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 Depression Diverticulitis Diverticulosis DVT (deep venous thrombosis) (~07/21/15) extensive from proximal superficial femoral to the popliteal Dyslipidemia GERD (gastroesophageal reflux disease) Hypertension Hypothyroidism Surgical History History of bowel resection AP resection with repair of bladder History of cholecystectomy S/P breast biopsy benign Family History Father Hypertension Myocardial infarction Sister Hypertension Denies family history of Ovarian cancer Prostate cancer Breast cancer Lung cancer Colorectal cancer Social History Smoking Status: Never smoker Second Hand Exposure: No; Hx Alcohol Use: Yes Hx Substance Use: No Preferred Language: Pashto Visual Impairment: Limited Hearing Ability: Normal marital status: Single Current Living Situation: Alone current occupational status: retired How many Children do You have: 1 Feels Safe at Home: Yes Childhood Exposure to Second-Hand Smoke: Yes caffeine: Yes Dental Care, Regularly: Yes Physical Activity Frequency: Does not Exercise Seatbelt Use: always Sunscreen Use: No Allergies Allergies Allergy/AdvReac Type Severity Reaction Status Date / Time Penicillins Allergy Severe anaphylaxis Verified 12/05/21 17:13 Sulfa (Sulfonamide AdvReac Severe SEVERE LEG Verified 12/05/21 17:13 Antibiotics) CRAMPS Home Meds Home Medications Medication Instructions Recorded Confirmed atorvastatin 10 mg tablet 10 mg PO 3XWK 05/31/20 12/05/21 lisinopril 20 mg tablet 20 mg PO HS 05/31/20 12/05/21 multivitamin 1 tab PO QAM 05/31/20 12/05/21 rivaroxaban 20 mg tablet (Xarelto) 20 mg PO HS 05/31/20 12/05/21 Saccharomyces boulardii 250 mg 250 mg PO BID 11/15/20 12/05/21 capsule (Daily Probiotic (S. boulardii)) inulin 2 gram chewable tablet 2 g PO DAILY 10/31/21 12/05/21 (Fiber Gummies) melatonin 10 mg capsule 10 mg PO HS PRN Sleep 10/31/21 12/05/21 Turmeric Gummies 3 tab PO DAILY 12/05/21 12/05/21 acetaminophen 500 mg tablet 1,000 mg PO Q8H PRN Pain 12/05/21 12/05/21 (Tylenol Extra Strength) ascorbic acid (vitamin C) 250 mg 500 mg PO DAILY 12/05/21 12/05/21 chewable tablet (Vitamin C) aspirin 81 mg tablet,delayed 81 mg PO 3XWK 12/05/21 12/05/21 release cholecalciferol (vitamin D3) 25 50 mcg PO HS 12/05/21 12/05/21 mcg (1,000 unit) chewable tablet (Vitamin D3) collagen,hydrolysate 500 mg-biotin 1 cap PO DAILY 12/05/21 12/05/21 800 mcg-ascorbic acid 50 mg capsule (Collagen 1500 Plus C) cyclobenzaprine 5 mg tablet 5 mg PO TID PRN MUSCLE SPASMS 12/05/21 12/05/21 docusate sodium 100 mg capsule 100 mg PO BID 12/05/21 12/05/21 famotidine 40 mg tablet (Pepcid) 40 mg PO 3XWK 12/05/21 12/05/21 gabapentin 100 mg capsule 100 mg PO TID 12/05/21 12/05/21 levothyroxine 175 mcg tablet 175 mcg PO 5XWK 12/05/21 12/05/21 (Synthroid) omega 3-rwv-rwa-fish oil 1,000 mg 1 cap PO DAILY 12/05/21 12/05/21 (120 mg-180 mg) capsule (Fish Oil) oxycodone 5 mg tablet 5 mg PO Q8H PRN Pain 12/05/21 12/05/21 pantoprazole 40 mg tablet,delayed 40 mg PO 4XWK 12/05/21 12/05/21 release polyethylene glycol 3350 17 17 g PO HS 12/05/21 12/05/21 gram/dose oral powder (Miralax) Results & Data (ED) Vital Signs Vital Signs - 24 hr 12/05/21 15:56 12/05/21 20:00 12/05/21 21:00 Temperature 36.5 C Temperature Source Temporal Artery Scan Pulse Rate 94 H 80 86 Respiratory Rate 18 19 18 Respiratory Effort / Characteristics Non-Labored Spontaneous Respiratory Depth Normal Respiratory Pattern Regular Blood Pressure 151/84 H 144/72 H 138/94 Blood Pressure Mean 106 96 108 Pulse Oximetry 97 94 96 Oxygen Delivery Method Room Air Room Air Room Air Sepsis Recent Fever Within 48 Hours No Sepsis New/Unexplained Change in Mental Status No Sepsis Action Taken by Nursing No Action Required 12/05/21 22:00 Temperature Temperature Source Pulse Rate 78 Respiratory Rate 14 Respiratory Effort / Characteristics Respiratory Depth Respiratory Pattern Blood Pressure 117/61 Blood Pressure Mean 79 Pulse Oximetry 96 Oxygen Delivery Method Room Air Sepsis Recent Fever Within 48 Hours Sepsis New/Unexplained Change in Mental Status Sepsis Action Taken by [facility] Medications Current Medication List: was personally reviewed by me Laboratory Data Attestation: I reviewed the patient's lab results. Result diagrams: 12/05/21 16:15 12/05/21 16:15 Lab Results 12/05/21 12/05/21 12/05/21 Range/Units 16:15 16:15 16:15 WBC 11.22 H (4.8-10.8) K/ul RBC 3.77 L (3.93-5.22) M/uL Hgb 12.1 (12.0-16.0) g/dl Hct 34.9 (34.1-44.9) % MCV 92.6 (80.0-100.0) fL MCH 32.1 (25.0-34.0) pg MCHC 34.7 (32.0-36.0) g/dL RDW Std Deviation 43.8 (36.4-46.3) fL RDW Coeff of [place] 13.1 (11.5-14.5) % Plt Count 192 (130-400) K/uL MPV 10.0 (9.4-12.3) fL Immature Gran % (Auto) 1.2 % Neut % (Auto) 71.3 % Lymph % (Auto) 15.6 % [place] % (Auto) 7.6 % Eos % (Auto) 3.7 % Baso % (Auto) 0.6 % Neut # (Auto) 8.00 H (1.4-6.5) K/uL Lymph # (Auto) 1.75 (1.2-3.4) K/uL [place] # (Auto) 0.85 H (0.24-0.82) K/uL Eos # (Auto) 0.41 (0-0.50) K/uL Baso # (Auto) 0.07 (0-0.2) K/uL Immature Gran # (Auto) 0.14 H (0.00-0.02) K/uL Sodium 138 (136-145) mmol/L Potassium 4.7 (3.5-5.1) mmol/L Chloride 102 (98-107) mmol/L Carbon Dioxide 29 (21-32) mmol/L Anion Gap 7 (3-11) BUN 21 (6-23) mg/dl Creatinine 0.84 (0.6-1.2) mg/dl Est Cr Clr Drug Dosing 81.6 ml/min Est GFR ( Amer) 82.2 ml/min Est GFR (Non-Af Amer) 70.9 ml/min BUN/Creatinine Ratio 25.0 H (10-20) Glucose 122 H (70-99(Fasting)) mg/dl Calcium 10.3 H (8.5-10.1) mg/dl Total Bilirubin 0.5 (0.2-1.0) mg/dl AST 26 (13-39) U/L ALT 28 (7-52) U/L Alkaline Phosphatase 60 (34-104) U/L Troponin I High Sens 4.4 (0-14) pg/ml B-Natriuretic Peptide (0-100) pg/ml Total Protein 6.7 (6.0-8.3) gm/dl Albumin 3.7 (3.4-5.0) gm/dl Globulin 3.0 (2.5-4.0) gm/dl Albumin/Globulin Ratio 1.2 (0.9-2) Urine Color Urine Appearance (Clear) Urine pH (4.5-7.5) Ur Specific [place] (1.000-1.030) Urine Protein (Negative) Urine Glucose (UA) (Negative) Urine Ketones (Negative) Urine Blood (Negative) Urine Nitrite (Negative) Urine Bilirubin (Negative) Urine Urobilinogen (Negative) Ur Leukocyte Esterase (Negative) SARS-CoV-2, RNA, NAAT (NEGATIVE) 12/05/21 12/05/21 12/05/21 Range/Units 16:15 19:56 20:50 WBC (4.8-10.8) K/ul RBC (3.93-5.22) M/uL Hgb (12.0-16.0) g/dl Hct (34.1-44.9) % MCV (80.0-100.0) fL MCH (25.0-34.0) pg MCHC (32.0-36.0) g/dL RDW Std Deviation (36.4-46.3) fL RDW Coeff of [place] (11.5-14.5) % Plt Count (130-400) K/uL MPV (9.4-12.3) fL Immature Gran % (Auto) % Neut % (Auto) % Lymph % (Auto) % [place] % (Auto) % Eos % (Auto) % Baso % (Auto) % Neut # (Auto) (1.4-6.5) K/uL Lymph # (Auto) (1.2-3.4) K/uL [place] # (Auto) (0.24-0.82) K/uL Eos # (Auto) (0-0.50) K/uL Baso # (Auto) (0-0.2) K/uL Immature Gran # (Auto) (0.00-0.02) K/uL Sodium (136-145) mmol/L Potassium (3.5-5.1) mmol/L Chloride (98-107) mmol/L Carbon Dioxide (21-32) mmol/L Anion Gap (3-11) BUN (6-23) mg/dl Creatinine (0.6-1.2) mg/dl Est Cr Clr Drug Dosing ml/min Est GFR ( Amer) ml/min Est GFR (Non-Af Amer) ml/min BUN/Creatinine Ratio (10-20) Glucose (70-99(Fasting)) mg/dl Calcium (8.5-10.1) mg/dl Total Bilirubin (0.2-1.0) mg/dl AST (13-39) U/L ALT (7-52) U/L Alkaline Phosphatase (34-104) U/L Troponin I High Sens (0-14) pg/ml B-Natriuretic Peptide 108 H (0-100) pg/ml Total Protein (6.0-8.3) gm/dl Albumin (3.4-5.0) gm/dl Globulin (2.5-4.0) gm/dl Albumin/Globulin Ratio (0.9-2) Urine Color Yellow Urine Appearance Clear (Clear) Urine pH 6.0 (4.5-7.5) Ur Specific [place] 1.009 (1.000-1.030) Urine Protein Negative (Negative) Urine Glucose (UA) Negative (Negative) Urine Ketones Negative (Negative) Urine Blood Negative (Negative) Urine Nitrite Negative (Negative) Urine Bilirubin Negative (Negative) Urine Urobilinogen Negative (Negative) Ur Leukocyte Esterase Negative (Negative) SARS-CoV-2, RNA, NAAT NEGATIVE (NEGATIVE) Administered Medications Discontinued Medications Furosemide (Furosemide 40 Mg/4 Ml Vial) 40 mg IV ONE ONE Stop: 12/05/21 20:40 Last Admin: 12/05/21 20:46 Dose: 40 mg Documented By: DP Imaging Data Radiologist's Impression: Chest X-Ray 12/05/21 15:59 SINGLE VIEW CHEST CLINICAL HISTORY: Dyspnea FINDINGS: An AP, portable, upright chest radiograph is compared to study dated 05/03/2020 and correlated with chest CT dated 10/12/2020. The examination is degraded by portable technique and apical lordotic positioning. The heart is mildly enlarged noting atherosclerotic calcification of the thoracic aorta. The pulmonary vasculature is noncongested. Emphysema and chronic interstitial thickening is similar to previous. There is mild bibasilar scarring/atelectasis. No pneumothorax is seen. The skeletal structures are osteopenic. The bony thorax is grossly intact. IMPRESSION: Cardiomegaly and emphysema with no active disease in the chest. ACT 112: Negative or not required by law. Electronically signed by: Gil Cuellar M.D. 12/05/2021 5:59 PM Venous Doppler Study 12/05/21 16:50 ULTRASOUND BILATERAL LOWER EXTREMITY VENOUS CLINICAL HISTORY: Bilateral lower extremity edema. Recent surgery COMPARISON STUDY: Right lower extremity venous ultrasound dated 12/30/2016. TECHNIQUE: Real-time, grayscale, and color Doppler sonography of the deep veins of the right and left lower extremity was performed from the inguinal crease to the calf. Compression and augmentation were utilized. FINDINGS: Right lower extremity: There is nonocclusive and chronic appearing deep venous thrombosis seen throughout the right mid to distal superficial femoral vein and the popliteal vein. This is similar to 12/30/2016 examination. The common femoral vein is patent and normally compressible. The greater saphenous vein and the profunda femoris vein at the junction with the common femoral vein are clear. The visualized calf veins are patent. Left lower extremity: There is no sonographic evidence of deep venous thrombosis in the left lower extremity. The common femoral, superficial femoral, and popliteal veins are patent and normally compressible. The greater saphenous vein and the profunda femoris vein at the junction with the common femoral vein are clear. The visualized calf veins are patent. IMPRESSION: 1. There is chronic appearing nonocclusive deep venous thrombosis in the right lower extremity as above. This is similar to the 2017 examination. 2. There is no sonographic evidence of deep venous thrombosis in the left lower extremity. ACT 112: Negative or not required by law. Electronically signed by: Gil Cuellar M.D. 12/05/2021 8:02 PM Discharge Plan Visit Data Chief Complaint: Swelling/Edema to Extremity Stated Complaint: SURG 11/29, WOKE UP WITH SWOLLEN LEGS ED Provider: Jan Corbin Discharge Problem: Localized swelling of both lower legs, Chronic dyspnea, History of incisional hernia repair Patient Disposition: Admitted As Inpatient Forms Stand Alone Forms: [facility] Prescriptions Prescriptions: No Action Saccharomyces boulardii [Daily Probiotic (S. boulardii)] 250 mg capsule 250 mg PO BID melatonin 10 mg capsule 10 mg PO HS PRN (Reason: Sleep) Fiber Gummies 2 gram tablet,chewable 2 g PO DAILY multivitamin Tablet 1 tab PO QAM atorvastatin 10 mg tablet 10 mg PO 3XWK Rx Instructions: TAKES AT HS. TAKES MON, WED, & FRI. lisinopril 20 mg tablet 20 mg PO HS Xarelto 20 mg tablet 20 mg PO HS famotidine [Pepcid] 40 mg Tablet 40 mg PO 3XWK Rx Instructions: TAKES MON, WED, & FRI. aspirin 81 mg Tablet,Delayed Release (Dr/Ec) 81 mg PO 3XWK Rx Instructions: TAKES MON, WED, & FRI. acetaminophen [Tylenol Extra Strength] 500 mg Tablet 1,000 mg PO Q8H PRN (Reason: Pain) ascorbic acid (vitamin C) [Vitamin C] 250 mg Tablet,Chewable 500 mg PO DAILY pantoprazole 40 mg Tablet,Delayed Release (Dr/Ec) 40 mg PO 4XWK Rx Instructions: TAKES ON SUN, TUES, THURS & SAT. docusate sodium 100 mg Capsule 100 mg PO BID gabapentin 100 mg Capsule 100 mg PO TID polyethylene glycol 3350 [Miralax] 17 gram/dose Powder 17 g PO HS oxycodone 5 mg tablet 5 mg PO Q8H PRN (Reason: Pain) cyclobenzaprine [Flexeril] 5 mg Tablet 5 mg PO TID PRN (Reason: MUSCLE SPASMS) cholecalciferol (vitamin D3) [Vitamin D3] 25 mcg (1,000 unit) Tablet,Chewable 50 mcg PO HS omega 9-qnd-hjs-fish oil [Fish Oil] 1,000 mg (120 mg-180 mg) Capsule 1 cap PO DAILY Collagen 1500 Plus C 500 mg-800 mcg- 50 mg Capsule 1 cap PO DAILY Turmeric Gummies 3 tab PO DAILY Rx Instructions: PT UNSURE OF STRENGTH levothyroxine [Synthroid] 175 mcg tablet 175 mcg PO 5XWK Rx Instructions: TAKES EVERY DAY EXCEPT WEDNESDAYS & SATURDAYS. Referrals Referrals: Herrera Najera MD [Primary Care Provider] -
[2021-12-05 16:59] LABS: Albumin Globulin Ratio 1.2 (0.9-2); Albumin Level 3.7 gm/dl (3.4-5.0); Bilirubin,Total 0.5 mg/dl (0.2-1.0); Calcium 10.3 mg/dl (8.5-10.1); Creatinine Clr Calc Pharmacy 81.6 ml/min; Est GFR (African American) 82.2 ml/min; Est GFR (Non-African American) 70.9 ml/min; Potassium 4.7 mmol/L (3.5-5.1); Total Protein 6.7 gm/dl (6.0-8.3)
--- NOTE | 2021-12-05 18:01 | XRay Report ---
SINGLE VIEW CHEST CLINICAL HISTORY: Dyspnea FINDINGS: An AP, portable, upright chest radiograph is compared to study dated 05/03/2020 and correlat ed with chest CT dated 10/12/2020. The examination is degraded by portable technique and apical lordoti c positioning. The heart is mildly enlarged noting atherosclerotic calcification of the thoracic aort a. The pulmonary vasculature is noncongested. Emphysema and chronic interstitial thickening is simila r to previous. There is mild bibasilar scarring/atelectasis. No pneumothorax is seen. The skeletal st ructures are osteopenic. The bony thorax is grossly intact. IMPRESSION: Cardiomegaly and emphysema with no active disease in the chest. ACT 112: Negative or not required by law. Electronically signed by: Gil Cuellar M.D. 12/05/2021 5:59 PM
--- NOTE | 2021-12-05 20:04 | Ultrasound Report ---
ULTRASOUND BILATERAL LOWER EXTREMITY VENOUS CLINICAL HISTORY: Bilateral lower extremity edema. Recent surgery COMPARISON STUDY: Right lower extremity venous ultrasound dated 12/30/2016. TECHNIQUE: Real-time, grayscale, and color Doppler sonography of the deep veins of the right and left lower extremity was performed from the inguinal crease to the calf. Compression and augmentation wer e utilized. FINDINGS: Right lower extremity: There is nonocclusive and chronic appearing deep venous thrombosis seen throug hout the right mid to distal superficial femoral vein and the popliteal vein. This is similar to 12/12 examination. The common femoral vein is patent and normally compressible. The greater saphenou s vein and the profunda femoris vein at the junction with the common femoral vein are clear. The visu alized calf veins are patent. Left lower extremity: There is no sonographic evidence of deep venous thrombosis in the left lower ex tremity. The common femoral, superficial femoral, and popliteal veins are patent and normally evans sible. The greater saphenous vein and the profunda femoris vein at the junction with the common femor al vein are clear. The visualized calf veins are patent. IMPRESSION: 1. There is chronic appearing nonocclusive deep venous thrombosis in the right lower extremity as abo ve. This is similar to the 2017 examination. 2. There is no sonographic evidence of deep venous thrombosis in the left lower extremity. ACT 112: Negative or not required by law. Electronically signed by: Gil Cuellar M.D. 12/05/2021 8:02 PM
[2021-12-05 20:20] LABS: Appearance Urine Clear (Clear); Bilirubin Urine Negative (Negative); Blood Urine Negative (Negative); Color Urine Yellow; Glucose Urine UA Negative (Negative); Ketones Urine Negative (Negative); Leukocyte Esterase Urine Negative (Negative); Nitrite Urine Negative (Negative); Protein Urine Negative (Negative); Specific Gravity Urine 1.009 (1.000-1.030); Urobilinogen Urine Negative (Negative)
[2021-12-05] MEDS ORDERED: FUROSEMIDE 40 MG/4 ML VIAL IV ONE (20:39)
--- NOTE | 2021-12-05 20:53 | History & Physical Report ---
Date of Service December 05, 2021 Assessment & Plan (1) Leg swelling: Plan: 71 yo F with PMH previous DVT of RLE on Xarelto, hypothyroidism, HTN, HLD, GERD, recent incisional hernia repair on 11/29 at [facility] with discharge on 12/04, presenting with leg swelling. -Based on clear CXR, lung exam, mild BNP elevation and no previous history of CHF, I do not suspect acute CHF. More likely venous stasis in setting of recent surgery/hospitalization -> reduced mobility -Lasix 40 mg IV given in ED -Will continue with Lasix 40 mg IV daily for now pending further workup -Echocardiogram ordered -PT/OT ordered -Monitor I's and O's -Trend BMP (2) DVT (deep venous thrombosis): Plan: -History of RLE DVT in 07/2015 -Venous dopplers on admission- chronic RLE non-occlusive DVT unchanged from 2017 -Continue home Xarelto (3) Hypothyroidism: Plan: -Continue home levothyroxine (4) GERD (gastroesophageal reflux disease): Plan: -Continue home famotidine, pantoprazole (alternating by day per home regimen) (5) Dyslipidemia: Plan: -Continue home atorvastatin (6) Hypertension: Plan: -Continue home lisinopril (7) Osteopenia: Plan: -Continue home vitamin D supplementation Plan FENGI: Low-salt, fluid restriction 1200 mls Code status: Full DVT ppx: Xarelto Isolation: None Dispo: Medical/surgical History of Present Illness Chief Complaint: Dyspnea, leg swelling Primary Care Provider: Herrera Najera MD 71 yo F with PMH COPD, previous DVT of RLE on Xarelto, hypothyroidism, HTN, HLD, GERD, recent incisional hernia repair on 11/29 at [facility] with discharge on 12/04, presenting with leg swelling. Pt was discharged from [facility] yesterday 12/04. States she has had progressive b/l leg swelling L > R with an estimated 13 lb weight gain during her hospitalization and believes it increased on her 2-3 hour ride home from [place]. Leg swelling gradually worsened but she denies any increased dyspnea beyond her baseline. Pt was able to ambulate in home with walker yesterday. This morning, pt's leg swelling concerned her and she contacted PCP who advised she go to ED. On arrival to ED, pt hemodynamically stable. EKG unremarkable. CXR with cardiomegaly but no edema. Venous doppler without acute thromboses. CBC, BMP, UA, troponin unremarkable. BNP 108. Pt given Lasix 40 mg IV. On evaluation, pt denies any dyspnea. Leg swelling unchanged, denies pain, warmth or pruritus. No other acute complaints. Allergies Allergy/AdvReac Type Severity Reaction Status Date / Time Penicillins Allergy Severe anaphylaxis Verified 12/05/21 17:13 Sulfa (Sulfonamide AdvReac Severe SEVERE LEG Verified 12/05/21 17:13 Antibiotics) CRAMPS Home Medications Medication Instructions Recorded Confirmed Type atorvastatin 10 mg tablet 10 mg PO 3XWK 05/31/20 12/05/21 History lisinopril 20 mg tablet 20 mg PO HS 05/31/20 12/05/21 History multivitamin 1 tab PO QAM 05/31/20 12/05/21 History rivaroxaban 20 mg tablet (Xarelto) 20 mg PO HS 05/31/20 12/05/21 History Saccharomyces boulardii 250 mg 250 mg PO BID 11/15/20 12/05/21 History capsule (Daily Probiotic (S. boulardii)) inulin 2 gram chewable tablet 2 g PO DAILY 10/31/21 12/05/21 History (Fiber Gummies) melatonin 10 mg capsule 10 mg PO HS PRN Sleep 10/31/21 12/05/21 History Turmeric Gummies 3 tab PO DAILY 12/05/21 12/05/21 History acetaminophen 500 mg tablet 1,000 mg PO Q8H PRN Pain 12/05/21 12/05/21 History (Tylenol Extra Strength) ascorbic acid (vitamin C) 250 mg 500 mg PO DAILY 12/05/21 12/05/21 History chewable tablet (Vitamin C) aspirin 81 mg tablet,delayed 81 mg PO 3XWK 12/05/21 12/05/21 History release cholecalciferol (vitamin D3) 25 50 mcg PO HS 12/05/21 12/05/21 History mcg (1,000 unit) chewable tablet (Vitamin D3) collagen,hydrolysate 500 mg-biotin 1 cap PO DAILY 12/05/21 12/05/21 History 800 mcg-ascorbic acid 50 mg capsule (Collagen 1500 Plus C) cyclobenzaprine 5 mg tablet 5 mg PO TID PRN MUSCLE SPASMS 12/05/21 12/05/21 History docusate sodium 100 mg capsule 100 mg PO BID 12/05/21 12/05/21 History famotidine 40 mg tablet (Pepcid) 40 mg PO 3XWK 12/05/21 12/05/21 History gabapentin 100 mg capsule 100 mg PO TID 12/05/21 12/05/21 History levothyroxine 175 mcg tablet 175 mcg PO 5XWK 12/05/21 12/05/21 History (Synthroid) omega 2-hoq-bbk-fish oil 1,000 mg 1 cap PO DAILY 12/05/21 12/05/21 History (120 mg-180 mg) capsule (Fish Oil) oxycodone 5 mg tablet 5 mg PO Q8H PRN Pain 12/05/21 12/05/21 History pantoprazole 40 mg tablet,delayed 40 mg PO 4XWK 12/05/21 12/05/21 History release polyethylene glycol 3350 17 17 g PO HS 12/05/21 12/05/21 History gram/dose oral powder (Miralax) furosemide 20 mg tablet 20 mg PO QAM PRN edema #30 tabs 12/06/21 Rx 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 Depression Diverticulitis Diverticulosis DVT (deep venous thrombosis) (~07/21/15) extensive from proximal superficial femoral to the popliteal Dyslipidemia GERD (gastroesophageal reflux disease) Hypertension Hypothyroidism Surgical History History of bowel resection AP resection with repair of bladder History of cholecystectomy S/P breast biopsy benign Family History Father Hypertension Myocardial infarction Sister Hypertension Denies family history of Ovarian cancer Prostate cancer Breast cancer Lung cancer Colorectal cancer Social History Smoking Status: Former smoker Second Hand Exposure: No; Hx Alcohol Use: Yes Alcohol type: wine Hx Substance Use: No Preferred Language: Luxembourgish Communication Ability: Effective Visual Impairment: Limited Hearing Ability: Normal Kindergarten Instructional Assistant Required: No Beliefs That Will Affect Care: None marital status: Single Current Living Situation: Alone current occupational status: retired How many Children do You have: 1 Feels Safe at Home: Yes Childhood Exposure to Second-Hand Smoke: Yes caffeine: Yes Dental Care, Regularly: Yes Physical Activity Frequency: Does not Exercise Seatbelt Use: always Sunscreen Use: No Assistive Devices: None Review of Systems Review of Systems: Per HPI Physical Exam Physical Exam: GENERAL: Obese female in no acute distress HEENT: PERRL, EOMI, no conjunctival injection, anicteric sclerae, moist mucous membranes NECK: Supple, no nuchal rigidity, no JVD CV: RRR, normal S1 and S2, no murmur RESP: CTAB, unlabored respirations, no crackles or wheezes ABD: Soft, nontender, abdominal binder in place with surgical site healing well- no overlying erythema or drainage, no rebound or guarding SKIN: No rashes, warm and dry EXT: 3+ b/l pitting edema of LE, dorsalis pedis pulses intact b/l, normal capillary refill NEURO: AOx3, no focal motor or sensory deficits Results & Data Results & Data ([facility]) Vital Signs (Past 12 Hours) Vital Signs Temp Pulse Resp BP Pulse Ox O2 Del Method 12/05/21 15:56 36.5 C 94 H 18 151/84 H 97 Room Air Supervising Physician Co-Signing Physician Notes Attending addendum: I have physically seen this patient, have supervised the medical residents activities, and agree with the H&P unless as otherwise noted. Assessment and Plan: Lower extremity edema- Given Lasix 40 mg IV from the ED Continue Lasix 40 mg IV every morning The patient will be admitted to telemetry for serial cardiac enzymes, serial EKG's, cardiac rhythm monitoring and a 2-D echocardiogram with Dopplers. Consult PT/OT Serial BMP and magnesium levels DVT right lower extremity 07/26- Chronic right lower extremity nonocclusive DVT on venous Dopplers, unchanged from 2017 Continue Xarelto Hypertension- Continue lisinopril Remaining orders and notations as noted Resident Activity Tracking Resident Involvement: Resident Care Provided Care Provided: Adult Hospital Medicine
[2021-12-05] MEDS ORDERED: ONDANSETRON INJ 2 MG/ML 2 ML VIAL IV PRN (23:56)
[2021-12-05] MEDS ORDERED: CYCLOBENZAPRINE HCL 5 MG TAB PO PRN (23:56)
[2021-12-06] MEDS ORDERED: ATORVASTATIN 10 MG TAB PO ONE (00:52)
[2021-12-06] MEDS ORDERED: lisinopril 20 MG TAB PO ONE (00:53)
[2021-12-06] MEDS ORDERED: ACETAMINOPHEN 325 MG TAB PO PRN (00:54)
[2021-12-06] MEDS ORDERED: RIVAROXABAN 20 MG TAB PO ONE (00:54)
[2021-12-06] MEDS ORDERED: CHOLECALCIFEROL 1,000 UNITS 25 MCG TAB PO ONE (00:55)
[2021-12-06] MEDS ORDERED: POLYETHYLENE (MIRALAX) 17 GM PACK PO SCH (01:00)
[2021-12-06] MEDS ORDERED: LEVOTHYROXINE SODIUM 175 MCG TABLET PO SCH (06:30)
[2021-12-06] MEDS ORDERED: PANTOprazole 40 MG TAB PO SCH (06:30)
[2021-12-06 06:57] LABS: Hematocrit (blood only) 33.8 % (34.1-44.9); Hemoglobin 11.9 g/dl (12.0-16.0); Mean Corpuscular Hemoglobin 31.8 pg (25.0-34.0); Mean Corpuscular Hgb Conc 35.2 g/dL (32.0-36.0); Mean Corpuscular Volume 90.4 fL (80.0-100.0); Platelet Count 190 K/uL (130-400); RDW Coefficient of Variation 13.2 % (11.5-14.5); RDW Standard Deviation 43.3 fL (36.4-46.3); Red Blood Count 3.74 M/uL (3.93-5.22); White Blood Count 7.66 K/ul (4.8-10.8)
[2021-12-06 07:41] LABS: BUN Creatinine Ratio 26.8 (10-20); Calcium 10.3 mg/dl (8.5-10.1); Creatinine Clr Calc Pharmacy 94.2 ml/min; Est GFR (African American) 100.7 ml/min; Est GFR (Non-African American) 86.9 ml/min; Magnesium 1.3 mg/dl (1.7-2.4); Potassium 3.6 mmol/L (3.5-5.1)
[2021-12-06] MEDS: GABAPENTIN 100 MG CAP PO SCH ×2 (08:54→14:10)
[2021-12-06] MEDS ORDERED: FUROSEMIDE 40 MG/4 ML VIAL IV SCH (09:00)
[2021-12-06] MEDS ORDERED: ASCORBIC ACID 500 MG TAB PO SCH (09:00)
[2021-12-06] MEDS ORDERED: DOCUSATE SODIUM 100 MG CAP PO SCH (09:00)
--- NOTE | 2021-12-06 13:03 | Hospitalist Progress Note ---
Date of Service December 06, 2021 Assessment & Plan (1) Leg swelling: Plan: 71 yo F with PMH previous DVT of RLE on Xarelto, hypothyroidism, HTN, HLD, GERD, recent incisional hernia repair on 11/29 at [facility] with discharge on 12/04, presenting with leg swelling. She said she was in a car for several hours and then notice that her legs got swollen after. -Its likely dependent edema from venous stasis -CXR did not show any evidence of fluid overload, - mild BNP elevation and no previous history of CHF -Lasix 40 mg IV given in ED -Will continue with Lasix 40 mg IV daily for now pending further workup -Echocardiogram done, result pending (2) DVT (deep venous thrombosis): Plan: -History of RLE DVT in 07/2015 -Venous dopplers on admission- chronic RLE non-occlusive DVT unchanged from 2017 -Continue home Xarelto (3) Hypothyroidism: Plan: -Continue home levothyroxine (4) GERD (gastroesophageal reflux disease): Plan: -Continue home famotidine, pantoprazole (alternating by day per home regimen) (5) Dyslipidemia: Plan: -Continue home atorvastatin (6) Hypertension: Plan: -Continue home lisinopril (7) Osteopenia: Plan: -Continue home vitamin D supplementation Plan FENGI: Low-salt, fluid restriction 1200 mls Code status: Full DVT ppx: Xarelto Isolation: None Dispo: Medical/surgical Admission and Anticipated Discharge Date Admission Date: December 05, 2021 Subjective patient seen and examined, said her legs are less swollen Review of Systems Review of Systems: All systems reviewed are negative, apart from the ones contained in the history. Physical Exam Physical Exam: The patient is awake, alert and oriented 3, well developed and well nourished, normocephalic and atraumatic, lying in bed and in no acute distress. HEENT--PERRL, EOMI, mucous membranes and oropharynx mildly dry Neck--supple. No JVD. No bruits. Thyroid normal, trachea midline, no adenopathy. Heart--normal S1 and S2. No murmurs, rubs or gallops. Lungs--clear bilaterally, no respiratory distress, no accessory muscle use. Abdomen--normal bowel sounds and soft. Mild epigastric and left sided abdominal pain Extremities--trace leg edema Dermatologic--normal skin turgor, normal color, no abnormal lymph nodes, no rash. Neurologic--cranial nerves II through XII grossly intact. Rheumatologic--normal range of motion. Psychiatric--normal affect. Results & Data Results & Data ([facility]) Vital Signs (Past 12 Hours) Vital Signs Temp Pulse Resp BP Pulse Ox O2 Del Method 12/06/21 08:10 Room Air 12/06/21 07:43 97.9 F 79 18 104/67 93 Room Air PG Care Time/CCT Total # of Minutes Spent Total Time Spent with Patient: Total time spent is greater than 50% in coordination of care (as documented) at patient's floor/unit and/or counseling patient: Coding Level of Care Code 27971 Subseq Obs Care Lvl 2 Diagnoses Leg swelling M79.89 DVT (deep venous thrombosis) I82.409 Hypothyroidism E03.9 GERD (gastroesophageal reflux disease) K21.9 Dyslipidemia E78.5 Hypertension I10 Osteopenia M85.80 Time Spent (min) 35
--- NOTE | 2021-12-06 14:56 | Discharge Summary ---
Date of Service December 06, 2021 Admission HPI Per Admitting Provider 71 yo F with PMH COPD, previous DVT of RLE on Xarelto, hypothyroidism, HTN, HLD, GERD, recent incisional hernia repair on 11/29 at [facility] with discharge on 12/04, presenting with leg swelling. Pt was discharged from [facility] yesterday 12/04. States she has had progressive b/l leg swelling L > R with an estimated 13 lb weight gain during her hospitalization and believes it increased on her 2-3 hour ride home from [place]. Leg swelling gradually worsened but she denies any increased dyspnea beyond her baseline. Pt was able to ambulate in home with walker yesterday. This morning, pt's leg swelling concerned her and she contacted PCP who advised she go to ED. On arrival to ED, pt hemodynamically stable. EKG unremarkable. CXR with cardiomegaly but no edema. Venous doppler without acute thromboses. CBC, BMP, UA, troponin unremarkable. BNP 108. Pt given Lasix 40 mg IV. On evaluation, pt denies any dyspnea. Leg swelling unchanged, denies pain, warmth or pruritus. No other acute complaints. Principal Diagnosis leg edema Discharge Exam The patient is awake, alert and oriented 3, well developed and well nourished, normocephalic and atraumatic, lying in bed and in no acute distress. HEENT--PERRL, EOMI, mucous membranes and oropharynx mildly dry Neck--supple. No JVD. No bruits. Thyroid normal, trachea midline, no adenopathy. Heart--normal S1 and S2. No murmurs, rubs or gallops. Lungs--clear bilaterally, no respiratory distress, no accessory muscle use. Abdomen--normal bowel sounds and soft. Mild epigastric and left sided abdominal pain Extremities--trace leg edema Dermatologic--normal skin turgor, normal color, no abnormal lymph nodes, no rash. Neurologic--cranial nerves II through XII grossly intact. Rheumatologic--normal range of motion. Psychiatric--normal affect. Discharge Data Allergies Allergy/AdvReac Type Severity Reaction Status Date / Time Penicillins Allergy Severe anaphylaxis Verified 12/05/21 17:13 Sulfa (Sulfonamide AdvReac Severe SEVERE LEG Verified 12/05/21 17:13 Antibiotics) CRAMPS Consultations 12/05/21 20:39 ED Decision to Admit Stat Ordered Studies 12/05/21 16:50 US venous doppler LE Stat Hospital Course (1) Leg swellin yo F with PMH previous DVT of RLE on Xarelto, hypothyroidism, HTN, HLD, GERD, recent incisional hernia repair on 11/29 at [facility] with discharge on 12/04, presenting with leg swelling. She said she was in a car for several hours and then notice that her legs got swollen after. -Its likely dependent edema from venous stasis -CXR did not show any evidence of fluid overload, - mild BNP elevation and no previous history of CHF -Lasix 40 mg IV given in ED -Will continue with Lasix 40 mg IV daily for now pending further workup -Echocardiogram done, result pending (2) DVT (deep venous thrombosis): -History of RLE DVT in 07/2015 -Venous dopplers on admission- chronic RLE non-occlusive DVT unchanged from 2017 -Continue home Xarelto (3) Hypothyroidism: -Continue home levothyroxine (4) GERD (gastroesophageal reflux disease): -Continue home famotidine, pantoprazole (alternating by day per home regimen) (5) Dyslipidemia: -Continue home atorvastatin (6) Hypertension: -Continue home lisinopril (7) Osteopenia: -Continue home vitamin D supplementation Plan FENGI: Low-salt, fluid restriction 1200 mls Code status: Full DVT ppx: Xarelto Isolation: None Dispo: Medical/surgical Total Time Total Time Spent Total Time Spent (In Minutes): 35 Discharge Plan Discharge Items Patient Disposition: Home - Self-Care Reason For Visit: LEG SWELLING Discharge Diagnosis: leg edema Activity: Resume your previous activity Non-emergency contact: Primary Care Provider Call non-emergency contact if: you have any medication questions Follow-up/Referrals: Herrera Najera MD [Primary Care Provider] - Diet: Regular Addtl Attending Provider Instructions: please make appointment to follow up with your PCP Wear your compression stockings Elevate your legs with pillows when sleeping Pending Studies at Discharge: No Stand-Alone Forms: My Therapeutic Monitoring Services, Smoking Cessation Medications and DC Order Prescriptions: Continued Saccharomyces boulardii [Daily Probiotic (S. boulardii)] 250 mg capsule 250 mg PO BID melatonin 10 mg capsule 10 mg PO HS PRN (Reason: Sleep) Fiber Gummies 2 gram tablet,chewable 2 g PO DAILY multivitamin Tablet 1 tab PO QAM atorvastatin 10 mg tablet 10 mg PO 3XWK Rx Instructions: TAKES AT HS. TAKES MON, WED, & FRI. lisinopril 20 mg tablet 20 mg PO HS Xarelto 20 mg tablet 20 mg PO HS famotidine [Pepcid] 40 mg Tablet 40 mg PO 3XWK Rx Instructions: TAKES MON, WED, & FRI. aspirin 81 mg Tablet,Delayed Release (Dr/Ec) 81 mg PO 3XWK Rx Instructions: TAKES MON, WED, & FRI. acetaminophen [Tylenol Extra Strength] 500 mg Tablet 1,000 mg PO Q8H PRN (Reason: Pain) ascorbic acid (vitamin C) [Vitamin C] 250 mg Tablet,Chewable 500 mg PO DAILY pantoprazole 40 mg Tablet,Delayed Release (Dr/Ec) 40 mg PO 4XWK Rx Instructions: TAKES ON SUN, TUES, THURS & SAT. docusate sodium 100 mg Capsule 100 mg PO BID gabapentin 100 mg Capsule 100 mg PO TID polyethylene glycol 3350 [Miralax] 17 gram/dose Powder 17 g PO HS oxycodone 5 mg tablet 5 mg PO Q8H PRN (Reason: Pain) cyclobenzaprine 5 mg Tablet 5 mg PO TID PRN (Reason: MUSCLE SPASMS) cholecalciferol (vitamin D3) [Vitamin D3] 25 mcg (1,000 unit) Tablet,Chewable 50 mcg PO HS omega 6-fbo-heo-fish oil [Fish Oil] 1,000 mg (120 mg-180 mg) Capsule 1 cap PO DAILY Collagen 1500 Plus C 500 mg-800 mcg- 50 mg Capsule 1 cap PO DAILY Turmeric Gummies 3 tab PO DAILY Rx Instructions: PT UNSURE OF STRENGTH levothyroxine [Synthroid] 175 mcg tablet 175 mcg PO 5XWK Rx Instructions: TAKES EVERY DAY EXCEPT WEDNESDAYS & SATURDAYS. Discharge Orders: Discharge Order (Routine); Ordered 12/06/21 Ordered By: Crystal Santillan Admission Data Admit Date/Time: 12/05/21 21:36 Attending Provider: Crystal Santillan Admit Provider: Jonathan Hernandez Primary Care Provider: Herrera Najera Other Providers: Da Sanchez Coding Level of Care Code D/C DAY MANAGEMENT >30 MINS Diagnoses Leg swelling M79.89 DVT (deep venous thrombosis) I82.409 Hypothyroidism E03.9 GERD (gastroesophageal reflux disease) K21.9 Dyslipidemia E78.5 Hypertension I10 Osteopenia M85.80 Time Spent (min) 35
--- NOTE | 2021-12-06 16:09 | XCELERA ---
[id number]
[2021-12-06] MEDS ORDERED: RIVAROXABAN 20 MG TAB PO SCH (16:30)
[2021-12-06] MEDS ORDERED: CHOLECALCIFEROL 1,000 UNITS 25 MCG TAB PO SCH (21:00)
[2021-12-06] MEDS ORDERED: lisinopril 20 MG TAB PO SCH (21:00)
--- NOTE | 2021-12-07 02:44 | Billing Data ---
Date of Service December 07, 2021 Coding Level of Care Code INT OBSERVATION CARE 72M LVL 3
[2021-12-07] MEDS ORDERED: FAMOTIDINE 40 MG TABLET PO SCH (09:00)
[2021-12-07] MEDS ORDERED: ASPIRIN 81 MG ECTAB PO SCH (09:00)
[2021-12-07] MEDS ORDERED: ATORVASTATIN 10 MG TAB PO SCH (21:00)
--- NOTE | 2021-12-07 22:12 | Electrocardiogram Report ---
Test Reason : Blood Pressure : / mmHG Vent. Rate : 096 BPM Atrial Rate : 096 BPM P-R Int : 144 ms QRS Dur : 070 ms QT Int : 320 ms P-R-T Axes : 044 017 010 degrees QTc Int : 404 ms Poor data quality, interpretation may be adversely affected Normal sinus rhythm Nonspecific T wave abnormality Abnormal ECG When compared with ECG of 14-NOV-2021 10:05, Vent. rate has increased BY 42 BPM T wave inversion now evident in Inferior leads Nonspecific T wave abnormality, worse in Anterior leads Confirmed by Erik Elder ([id number]) on 12/07/2021 10:12:19 PM Referred By: Herrera Najera Confirmed By:Erik Elder
== END 2021-12-06 15:32 | disposition home or self-care (01) ==
LOC: 3N 15:24 → ED 15:24 → SUATTDRO 21:36 → 3N 23:45

== ENCOUNTER 2022-11-22 05:05 | Observation (INO) ==
--- NOTE | 2022-10-22 11:24 | PAT Medication Instructions ---
Medication Instructions Date of Service October 22, 2022 Home Medications Medication Instructions Recorded furosemide 20 mg tablet 20 mg PO QAM PRN edema #30 tabs 12/06/21 lisinopril 20 mg tablet 20 mg PO HS #90 tabs 01/14/22 rivaroxaban 20 mg tablet (Xarelto) 20 mg PO HS #90 tabs 01/14/22 umeclidinium 62.5 mcg-vilanterol 1 inh inhalation DAILY #90 ea 01/29/22 25 mcg/actuation powdr for inhalation (Anoro Ellipta) multivitamin 1 tab PO QAM inulin 2 gram chewable tablet (Fiber Gummies) 2 g PO DAILY melatonin 10 mg capsule 10 mg PO HS PRN acetaminophen 500 mg tablet (Tylenol Extra Strength) 1,000 mg PO Q8H PRN ascorbic acid (vitamin C) 250 mg chewable tablet (Vitamin C) 500 mg PO DAILY aspirin 81 mg tablet,delayed release 81 mg PO 3XWK cholecalciferol (vitamin D3) 25 mcg (1,000 unit) chewable tablet (Vitamin D3) 50 mcg PO HS collagen,hydrolysate 500 mg-biotin 800 mcg-ascorbic acid 50 mg capsule (Collagen 1500 Plus C) 1 cap PO DAILY omega 0-dzn-pih-fish oil 1,000 mg (120 mg-180 mg) capsule (Fish Oil) 1 cap PO DAILY furosemide 20 mg tablet 20 mg PO QAM PRN lisinopril 20 mg tablet 20 mg PO HS rivaroxaban 20 mg tablet (Xarelto) 20 mg PO HS umeclidinium 62.5 mcg-vilanterol 25 mcg/actuation powdr for inhalation (Anoro Ellipta) 1 inh inhalation DAILY Saccharomyces boulardii 250 mg capsule (Daily Probiotic (S. boulardii)) 250 mg PO DAILY atorvastatin 10 mg tablet 10 mg PO famotidine 40 mg tablet (Pepcid) 40 mg PO levothyroxine 175 mcg tablet (Synthroid) 175 mcg PO pantoprazole 40 mg tablet,delayed release 40 mg PO coenzyme Q10 10 mg capsule (Co Q-10) 10 mg PO DAILY diclofenac sodium 75 mg tablet,delayed release 75 mg PO QAM turmeric 400 mg capsule 400 mg PO QAM Continue as directed atorvastatin 10 mg tablet 10 mg PO famotidine 40 mg tablet (Pepcid) 40 mg PO levothyroxine 175 mcg tablet (Synthroid) 175 mcg PO pantoprazole 40 mg tablet,delayed release 40 mg PO umeclidinium 62.5 mcg-vilanterol 25 mcg/actuation powdr for inhalation (Anoro Ellipta) 1 inh inhalation DAILY aspirin 81 mg tablet,delayed release 81 mg PO 3XWK (unless directed otherwise by surgeon) ASK your surgeon for instructions diclofenac sodium 75 mg tablet,delayed release 75 mg PO QAM ASK your prescriber and surgeon rivaroxaban 20 mg tablet (Xarelto) 20 mg PO HS(in order for spinal or epidural anesthesia, Xarelto needs to be stopped 72 hours/3 days before surgery. Please check if okay with doctor that prescribes this to you) STOP taking 2 weeks before surgery (or as soon as possible if surgery is within 2 weeks) collagen,hydrolysate 500 mg-biotin 800 mcg-ascorbic acid 50 mg capsule (Collagen 1500 Plus C) 1 cap PO DAILY omega 1-jta-hww-fish oil 1,000 mg (120 mg-180 mg) capsule (Fish Oil) 1 cap PO DAILY coenzyme Q10 10 mg capsule (Co Q-10) 10 mg PO DAILY turmeric 400 mg capsule 400 mg PO QAM DO NOT take the morning of surgery multivitamin 1 tab PO QAM inulin 2 gram chewable tablet (Fiber Gummies) 2 g PO DAILY ascorbic acid (vitamin C) 250 mg chewable tablet (Vitamin C) 500 mg PO DAILY furosemide 20 mg tablet 20 mg PO QAM PRN Saccharomyces boulardii 250 mg capsule (Daily Probiotic (S. boulardii)) 250 mg PO DAILY Take morning of surgery With a small sip of water, OTHERWISE NOTHING TO EAT OR DRINK AFTER MIDNIGHT: acetaminophen 500 mg tablet (Tylenol Extra Strength) 1,000 mg PO Q8H PRN(if needed) Take evening before surgery melatonin 10 mg capsule 10 mg PO HS PRN(if needed) acetaminophen 500 mg tablet (Tylenol Extra Strength) 1,000 mg PO Q8H PRN(if needed) cholecalciferol (vitamin D3) 25 mcg (1,000 unit) chewable tablet (Vitamin D3) 50 mcg PO HS lisinopril 20 mg tablet 20 mg PO HS Other Notes If you have any questions please call us at [phone] or [phone] or [phone] or [phone]
--- NOTE | 2022-10-23 13:15 | Anesthesiology Consultation ---
Date of Service October 23, 2022 Assessment & Plan (1) Encounter for pre-operative examination: Chart Review Chart Review: Acceptable Risk for Surgery (pending routine PCP appt 11/11/22) and Patient NOT seen in Pre Admission Testing - Awaiting PCP appt (Dr. Najera) 11/11/22 - Pt is NOT an ideal OPJ candidate due to comorbidities (currently scheduled as 23 hour obs) Per PAT appt on 10/23/22, no recent illness/disease exposures, illness related symptoms, or recent illness/disease positive tests. Will leave to surgeon's discretion if preop Covid testing needed Teaching & Discussion Pre-Anesthesia Teaching/Discussion Notes: Instructed NPO after midnight before surgery,except medications with 15 cc of water. Medication instructions provided according to the [facility] guidelines. History Surgery Operation Date: 11/22/22 07:00 Proposed Procedures p Right Total Knee Arthroplasty - Orlando Kwan, Height/Weight Height: 5 ft 4 in Weight: 110.6 kg Allergies Allergy/AdvReac Type Severity Reaction Status Date / Time Penicillins Allergy Severe anaphylaxis Verified 10/21/22 08:31 Sulfa (Sulfonamide AdvReac Severe SEVERE LEG Verified 10/21/22 08:31 Antibiotics) CRAMPS ciprofloxacin [From Cipro] AdvReac Unknown caused Verified 10/21/22 08:32 tendon pain Medications Home Medications Medication Instructions Recorded Confirmed Last Taken multivitamin 1 tab PO QAM 05/31/20 10/21/22 12/05/21 inulin 2 gram chewable tablet 2 g PO DAILY 10/31/21 10/21/22 12/05/21 (Fiber Gummies) melatonin 10 mg capsule 10 mg PO HS PRN Sleep 10/31/21 10/21/22 Unknown acetaminophen 500 mg tablet 1,000 mg PO Q8H PRN Pain 12/05/21 10/21/22 Unknown (Tylenol Extra Strength) ascorbic acid (vitamin C) 250 mg 500 mg PO DAILY 12/05/21 10/21/22 12/05/21 chewable tablet (Vitamin C) aspirin 81 mg tablet,delayed 81 mg PO 3XWK 12/05/21 10/21/22 12/05/21 release cholecalciferol (vitamin D3) 25 50 mcg PO HS 12/05/21 10/21/22 12/04/21 mcg (1,000 unit) chewable tablet (Vitamin D3) collagen,hydrolysate 500 mg-biotin 1 cap PO DAILY 12/05/21 10/21/22 12/05/21 800 mcg-ascorbic acid 50 mg capsule (Collagen 1500 Plus C) omega 5-pgb-wpw-fish oil 1,000 mg 1 cap PO DAILY 12/05/21 10/21/22 12/05/21 (120 mg-180 mg) capsule (Fish Oil) furosemide 20 mg tablet 20 mg PO QAM PRN edema #30 tabs 12/06/21 10/21/22 Unknown lisinopril 20 mg tablet 20 mg PO HS #90 tabs 01/14/22 10/21/22 Unknown rivaroxaban 20 mg tablet (Xarelto) 20 mg PO HS #90 tabs 01/14/22 10/21/22 Unknown umeclidinium 62.5 mcg-vilanterol 1 inh inhalation DAILY #90 ea 01/29/22 10/21/22 Unknown 25 mcg/actuation powdr for inhalation (Anoro Ellipta) Saccharomyces boulardii 250 mg 250 mg PO DAILY 05/20/22 10/21/22 Unknown capsule (Daily Probiotic (S. boulardii)) atorvastatin 10 mg tablet 10 mg PO .3 times wkly 05/20/22 10/21/22 Unknown famotidine 40 mg tablet (Pepcid) 40 mg PO .3 wkly 05/20/22 10/21/22 Unknown levothyroxine 175 mcg tablet 175 mcg PO .5 times wkly 05/20/22 10/21/22 Unknown (Synthroid) pantoprazole 40 mg tablet,delayed 40 mg PO .4 times wkly 05/20/22 10/21/22 Unknown release coenzyme Q10 10 mg capsule (Co 10 mg PO DAILY 09/03/22 10/21/22 Unknown Q-10) diclofenac sodium 75 mg 75 mg PO QAM 09/30/22 10/21/22 Unknown tablet,delayed release turmeric 400 mg capsule 400 mg PO QAM 10/21/22 10/21/22 Unknown Past Medical History Medical History (Updated 10/23/22 @ 13:11 by Leydi Jason PA-C) COPD (chronic obstructive pulmonary disease) mild - breathing stable - chronic ESPITIA - feels due to deconditioning - stable x years Depression Dyslipidemia GERD (gastroesophageal reflux disease) well controlled and stable Hypertension Hypothyroidism On anticoagulant therapy GERONIMO (obstructive sleep apnea) Mild - cannot tolerate CPAP Peripheral edema LEs- chronic and stable- no significant issues noted at 10/23/22 at [facility] appt Pre-diabetes Diet controlled Pulmonary nodule Under observation SOBOE (shortness of breath on exertion) Venous thrombosis of leg Around 2017- right thigh/leg- on xarelto daily - no issues since on Xarelto Exercise / Class Metabolic Activity III < 4 Walking/Shop/Light housework (one flight of stairs - no chest pain, mild SOB- uses cane to ambulate only when doing long distance) Past Family History Family History Father Hypertension Myocardial infarction Sister Hypertension Denies family history of Ovarian cancer Prostate cancer Breast cancer Lung cancer Colorectal cancer Past Surgical History Surgical History History of bowel resection AP resection with repair of bladder History of cholecystectomy History of incisional hernia repair Hx of bilateral cataract extraction Hx of colonoscopy S/P breast biopsy benign Past Anesthesia History No Hx of Anesthesia Complications and No Family Hx of Anesthesia Complications History of PONV No Hx of PONV and No Hx of Motion Sickness Social History Smoking Status: Former smoker tobacco type: cigarettes Do You Dip or Chew Tobacco: No Smoking End Date: quit 10 yrs ago Hx Alcohol Use: Yes (1-2 drinks 4-5 times per week) Alcohol type: beer and wine alcohol intake frequency: a few times a week Hx Substance Use: No substance use type: does not use Review of Systems - Occ cough- chronic and stable- feels due to COPD Patient denies chest pain, shortness of breath at rest, wheezing, palpitations. No hx of seizures, stroke, PR, apnea/snoring. No hx of blood transfusions Physical Exam Vital Signs VITALS BP 127/62 P 69 TEMP 98.1 SP02 95% RESP 16 Constitutional no acute distress ENMT Mouth: no TMJ clicking Thyromental Distance: > or= 3.5 Finger Breadths (3.5) Mallampati Class: III Missing molars and side teeth Permanent implant on side teeth Neck neck extension not limited Respiratory normal respiratory effort; no respiratory distress Auscultation: lungs clear to auscultation bilaterally; no wheezes Cardiovascular Rate/Rhythm: regular rate and regular rhythm Heart Sounds: no murmur Vessels: no carotid bruit Musculoskeletal Spine: no pain with cervical ROM Extremities: extremities normal to inspection Psychiatric Orientation: alert Lab Results Anesthesia Preop Results Results Anesthesia Widget: WBC 8.15 K/ul (4.8-10.8) 10/23/22 Hgb 13.3 g/dl (12.0-16.0) 10/23/22 Hct 38.5 % (37.0-47.0) 10/23/22 Plt 212 K/uL (130-400) 10/23/22 Na 139 mmol/L (136-145) 10/23/22 K 4.3 mmol/L (3.5-5.1) 10/23/22 Cl 104 mmol/L (98-107) 10/23/22 CO2 28 mmol/L (21-32) 10/23/22 BUN 23 mg/dl (6-23) 10/23/22 Creat 0.82 mg/dl (0.6-1.2) 10/23/22 Glucose Level 92 mg/dl (70-99(Fasting)) 10/23/22 PT 12.5 Seconds (9.0-12.0) H 10/23/22 PTT 30.2 Seconds (21.0-31.0) 10/23/22 INR 1.2 (0.9-1.1) H 10/23/22 HA1c 5.8 % (4.5-5.6) H 10/23/22 Urine Color Yellow 09/04/22 Urine Appearance Clear (Clear) 09/04/22 Urine pH 7.5 (4.5-7.5) 09/04/22 Urine Specific [place] 1.011 (1.000-1.030) 09/04/22 Urine Protein Negative (Negative) 09/04/22 Urine Glucose (UA) Negative (Negative) 09/04/22 Urine Ketones Negative (Negative) 09/04/22 Urine Blood Negative (Negative) 09/04/22 Urine Nitrite Negative (Negative) 09/04/22 Urine Bilirubin Negative (Negative) 09/04/22 Urine Urobilinogen Negative (Negative) 09/04/22 Urine Leukocyte Esterase Negative (Negative) 09/04/22 Blood Type A Positive 10/23/22 Antibody Screen NEGATIVE 10/23/22 Testing Electrocardiogram Date: 10/23/22 Findings: + NSR @ (62bpm ) Low voltage QRS Chest X-Ray Date: 10/23/22 FINDINGS: Lung volumes are normal. Lungs are clear. There is no pneumothorax or pleural effusion. Cardiac size is normal. Mediastinal contours are normal. There is no evidence for pulmonary edema. IMPRESSION: No acute cardiopulmonary findings. Echocardiogram Date: 12/06/21 EF: 60-65% LV Function: normal RWMA: + none Other Findings: + LVH (mild/concentric ) and + diastolic dysfunction (Type I ) Sclerotic AV without significant stenosis based on Doppler evaluation. Normal estimated PASP. Other Testing Venous doppler 12/05/21= There is chronic appearing nonocclusive deep venous thrombosis in the right lower extremity. This is similar to the 2017 examination. There is no sonographic evidence of deep venous thrombosis in the left lower extremity.
[2022-11-22] MEDS ORDERED: LR 500ML BOLUS, THEN 15ML/HR IV SCH (06:00)
[2022-11-22] MEDS ORDERED: ACETAMINOPHEN 500 MG TAB PO SCH (06:00)
[2022-11-22] MEDS ORDERED: TRANEXAMIC ACID 1,000 MG **IV Intra-op IV SCH (06:00)
[2022-11-22] MEDS ORDERED: dexAMETHasone 4 MG TAB PO SCH (06:00)
[2022-11-22] MEDS ORDERED: LR 60ML/HR IV SCH (06:00)
[2022-11-22] MEDS ORDERED: FAMOTIDINE 20 MG TAB PO SCH (06:00)
[2022-11-22] MEDS ORDERED: GABAPENTIN 300 MG CAP PO SCH (06:00)
[2022-11-22] MEDS ORDERED: TRANEXAMIC ACID 1,000 MG **IV Pre-op IV SCH (06:00)
[2022-11-22] MEDS ORDERED: Ketorolac (*for OR use only*) 30 MG, dexAMETHasone 4 MG, KETAMINE HCL (**OR use only) 1... INFIL SCH (06:00)
[2022-11-22] MEDS ORDERED: ROPIVACAINE 0.5% 5 MG/ML 30 ML VIAL ONE (06:18)
[2022-11-22] MEDS ORDERED: ceFAZolin 2,000 MG/15 ML IV PUSH IV ONE (06:21)
[2022-11-22] MEDS ORDERED: ORTHO JOINT ANESTHETIC ONE (06:32)
--- NOTE | 2022-11-22 06:32 | History & Physical Bridge Note ---
Date of Service November 22, 2022 History & Physical Bridge Note I have examined the patient, reviewed the History & Physical and in the interval since the performance of the History & Physical I have noted the following changes of clinical significance: no changes noted
[2022-11-22] MEDS ORDERED: LIDOCAINE 2% 2 ML VIAL/AMP(20MG/ML) INFIL ONE (06:36)
[2022-11-22] MEDS ORDERED: PROPOFOL IV EMULSION 10 MG/ML 20 ML VIAL IV ONE ×2 (06:36→08:17)
[2022-11-22] MEDS ORDERED: MIDAZOLAM HCL 1 MG/ML 2ML VIAL ONE ×2 (06:37→07:12)
[2022-11-22] MEDS ORDERED: fentaNYL citrate PF 100 MCG/2 ML VIAL ONE (06:37)
[2022-11-22] MEDS ORDERED: HYDROmorphone INJ 1 MG/ML SYRINGE IV PRN (06:44)
[2022-11-22] MEDS ORDERED: ONDANSETRON INJ 2 MG/ML 2 ML VIAL IV PRN ×2 (06:44→11:10)
[2022-11-22] MEDS ORDERED: ATROPINE SULFATE 0.1 MG/ML 10ML SYR IV PRN (06:44)
[2022-11-22] MEDS ORDERED: ePHEDrine sulfate 50 MG/ML AMP IV PRN (06:44)
[2022-11-22] MEDS ORDERED: fentaNYL citrate PF 100 MCG/2 ML VIAL IV PRN (06:44)
--- NOTE | 2022-11-22 08:03 | Operative Report ---
PG Post Operative Report Pre & Post Diagnosis Operation Date: 11/22/22 07:00 Pre-Op Diagnosis: Osteoarthritis of Right Knee Post-Op Diagnosis: Osteoarthritis of Right Knee I identified the patient and participated in the time-out.: Yes Procedure Operation Date: 11/22/22 07:00 Actual Procedures p Right Total Knee Arthroplasty(Right) - Orlando Kwan DO Surgeon Orlando Kwan DO Sewing Machine Operator Zipper Orlando Cruz PA-C Estimated Blood Loss 30 Findings Consistent with Post-Op Diagnosis Specimens Right femoral tibial Description of Procedure Implants used: I used a Ramiro Persona total knee arthroplasty system with a size 7 standard femur, D tibia, 31 oval patella, and a size 13 medial congruent polyethylene bearing. All components were cemented in place with Biomet cement. Shantel arrived [facility] for the above procedure. She was seen in the preoperative holding area and the operative extremity was identified and signed. She was given a preoperative antibiotic, TXA, a spinal anesthetic and an adductor nerve block. She was taken back to the operating room and laid on the table in supine position. She was given basic sedation. The operative knee was then prepped and draped in sterile fashion. A timeout was done, and the patient and the operative extremity was properly identified. A midline incision was made directly over the patella. Dissection was taken down to the extensor mechanism. A midvastus arthrotomy was used. The medial retinaculum was released and the fat pad was mostly excised. The knee was flexed and the ACL, PCL, and meniscus were removed. A drill was sent down the center of the femoral canal followed by an intramedullary nani. Off that nani a distal femoral cutting block was placed. 9 mm was resected off the distal femur at 5 of valgus. A posterior referencing AP sizing guide was then placed on the distal femur. The femur measured to be a size 7. 2 drill holes were placed in 3 of external rotation. A 4-in-1 cutting block was then impacted into place. Anterior, posterior, and chamfer cuts were then made. The proximal tibia was then exposed. An external tibial alignment guide was placed. A tibial cut guide was then anchored in place and the proximal tibia was then resected. The posterior aspect of the knee was then opened up and any additional meniscus fragments and osteophytes were removed. The tibia measured to be a size D. The tibial plate was then placed in the appropriate rotation and the tibia was drilled and punched. Trial components were then placed. I used a size 13 medial congruent polyethylene insert. The knee was brought through a full range of motion and felt to be stable. The peg holes for the femoral component were then drilled. The patella was then everted and 9 mm was resected off the posterior aspect of the patella. The patella measured to be a size 31 oval. 3 peg holes were then drilled. A trial patella was placed. The knee was once again brought through a full range of motion and felt to be stable. Trial components were then removed. The surrounding soft tissues were injected with 100 cc of an orthopedic pain control cocktail. All components were then cemented into place with Biomet cement. The final polyethylene insert was then snapped into place. Once cement was dry the tourniquet was deflated. Hemostasis was obtained. A dilute betadyne lavage was then done for 3 minutes. The joint was then irrigated with normal saline solution. The midvastus arthrotomy was then closed with #1 Vicryl suture. The skin was closed with 2-0 Vicryl, 3-0V lock suture, and larissa. A soft compressive dressing was placed. She was then transferred to a hospital bed and taken to the postanesthesia care unit in stable condition. She tolerated the procedure well. Orlando Cruz PA-C, was present for the entire procedure. He was critical for patient positioning, prepping, draping, retraction exposure, wound closure and application of sterile dressing. I attest to the content of the Intraoperative Record and any orders documented therein. Any exceptions are noted below.
--- NOTE | 2022-11-22 08:46 | Anesthesiology Progress Note ---
Date of Service November 22, 2022 Anesthesia Post Procedure Vital Signs Vital Signs: Temp Pulse Resp BP Pulse Ox O2 Del Method 11/22/22 05:44 36.8 C 78 18 148/70 H 95 Room Air Pain Intensity Right Knee: Pain Intensity: 2 Transfer of Care Handoff Completed per policy Notes Mental Status: alert / awake / arousable and participated in evaluation Patient Amnestic to Procedure: Yes Nausea / Vomiting: adequately controlled Pain: adequately controlled Airway Patency, RR, SpO2: stable & adequate BP & HR: stable & adequate Hydration State: stable & adequate Neuraxial Anesthesia: was administered and sensory block is resolving Anesthetic Complications: no major complications apparent and Pt Satisfied with anesthetic care
--- NOTE | 2022-11-22 08:55 | XRay Report ---
RIGHT KNEE 2 VIEWS History: Right total knee arthroplasty. Degenerative arthritis. Postop. FINDINGS: The patient is status post a right total knee arthroplasty. The hardware is intact. No frac ture or dislocation. Skin larissa are in place. IMPRESSION: Right total knee arthroplasty. No evidence for hardware complication. ACT 112: Negative or not required by law. Electronically signed by: Mandeep Stanley M.D. 11/22/2022 8:53 AM
[2022-11-22] MEDS ORDERED: HYDROmorphone INJ 0.5 MG/0.5 ML SYR IV PRN (11:10)
[2022-11-22] MEDS ORDERED: FUROSEMIDE 20 MG TAB PO PRN (11:10)
[2022-11-22] MEDS ORDERED: FAMOTIDINE 40 MG TABLET PO SCH (11:10)
[2022-11-22] MEDS ORDERED: METOCLOPRAMIDE HCL INJ 5 MG/ML 2 ML VIAL IV PRN (11:10)
[2022-11-22] MEDS ORDERED: NALOXONE HCL 0.4 MG/1 ML VIAL/CARP IV PRN (11:10)
[2022-11-22] MEDS ORDERED: MAGNESIUM HYDROXIDE SUSP 30 ML UDC PO PRN (11:10)
[2022-11-22] MEDS ORDERED: LEVOTHYROXINE SODIUM 175 MCG TABLET PO SCH (11:10)
[2022-11-22] MEDS ORDERED: bisacodyL 10 MG SUPP PR PRN (11:10)
[2022-11-22] MEDS: SODIUM CHLORIDE 0.9% 1,000 ML IV SCH (12:39)
[2022-11-22] MEDS: UMECLIDINIUM/VILANTEROL 62.5/25MCG 7 PUFFS/INHALER INH SCH (12:40)
[2022-11-22] MEDS: MULTIVITAMIN TAB PO SCH (12:40)
[2022-11-22] MEDS: DOCUSATE SODIUM 100 MG CAP PO SCH ×2 (12:41→21:12)
[2022-11-22] MEDS: ACETAMINOPHEN 500 MG TAB PO SCH ×2 (13:05→21:12)
[2022-11-22] MEDS: oxyCODONE HCL IR 5 MG TAB (IMMEDIATE RELEASE) PO PRN ×3 (14:32→23:17)
[2022-11-22] MEDS: ceFAZolin 2000MG 2,000 MG/15 ML SYR IV SCH ×2 (16:32→23:19)
[2022-11-22] MEDS ORDERED: lisinopril 20 MG TAB PO SCH (21:00)
[2022-11-22] MEDS ORDERED: SENNA 8.6 MG TAB PO SCH (21:00)
[2022-11-22] MEDS ORDERED: ATORVASTATIN 10 MG TAB PO SCH (21:00)
[2022-11-23] MEDS: SODIUM CHLORIDE 0.9% 1,000 ML IV SCH (00:41)
[2022-11-23] MEDS: ALLERGY Noted to ORDERED Medication SCH ×2 (01:36→01:37)
[2022-11-23] MEDS: oxyCODONE HCL IR 5 MG TAB (IMMEDIATE RELEASE) PO PRN ×2 (03:30→07:47)
[2022-11-23] MEDS: ACETAMINOPHEN 500 MG TAB PO SCH (05:39)
[2022-11-23 06:03] LABS: Hematocrit (blood only) 32.2 % (37.0-47.0); Hemoglobin 11.3 g/dl (12.0-16.0); Mean Corpuscular Hemoglobin 30.7 pg (25.0-34.0); Mean Corpuscular Hgb Conc 35.1 g/dL (32.0-36.0); Mean Corpuscular Volume 87.5 fL (80.0-100.0); Mean Platelet Volume 11.5 fL (9.4-12.4); Platelet Count 186 K/uL (130-400); RDW Coefficient of Variation 12.1 % (11.5-14.5); RDW Standard Deviation 39.1 fL (36.4-46.3); Red Blood Count 3.68 M/uL (4.20-5.40); White Blood Count 14.36 K/ul (4.8-10.8)
[2022-11-23 06:21] LABS: BUN Creatinine Ratio 29.6 (10-20); Calcium 9.2 mg/dl (8.6-10.3); Creatinine Clr Calc Pharmacy 78.2 ml/min; Est GFR (African American) 85.3 ml/min; Est GFR (Non-African American) 73.6 ml/min; Potassium 4.7 mmol/L (3.5-5.1)
--- NOTE | 2022-11-23 07:06 | Orthopedic Progress Note ---
Date of Service November 23, 2022 Assessment & Plan (1) Status post right knee replacement: Overall she is doing very well. She is not having much pain in the right knee. She will be seen by physical therapy today for ambulation and range of motion exercises. She is on Xarelto for DVT prophylaxis. The nursing staff can change her dressing after physical therapy. She can be discharged home later today. She will follow-up with orthopedics in 2 weeks. Nuris Funes was seen and examined at bedside this morning. Overall she is doing fairly well. She is not having too much pain in the right knee. She has been up and ambulating to the bathroom. She has no complaints. . Review of Systems All systems reviewed & are unremarkable except as noted in HPI & below. Physical Exam On physical examination of the right knee, the dressing is clean and dry. Her leg is out full extension. She has active dorsiflexion plantarflexion of her right ankle.. Results & Data Results & Data Laboratory Results . Diagnostic Findings Postoperative x-rays of the right knee show the prosthesis to be in anatomic alignment without any evidence of fracture complication, or loosening.. PG Care Time/CCT Total # of Minutes Spent Total Time Spent with Patient: Total time spent is greater than 50% in coordination of care (as documented) at patient's floor/unit and/or counseling patient: Coding Level of Care Code 17613 Post Operative Follow-Up Diagnoses Status post right knee replacement Z96.651
--- NOTE | 2022-11-23 07:07 | Discharge Summary ---
Date of Service November 23, 2022 Principal Diagnosis Same as "Discharge Diagnosis" noted below under Discharge Instructions. Discharge Exam On physical examination of the right knee, the dressing is clean and dry. Her leg is out full extension. She has active dorsiflexion plantarflexion of her right ankle.. Discharge Data Procedures Performed Operation Date: 11/22/22 07:00 Actual Procedures p Right Total Knee Arthroplasty(Right) - Orlando Kwan DO Ordered Studies 11/22/22 05:00 US - OR guided needle placemen Routine Hospital Course (1) Status post right knee replacement: On November 22, 2022 Shantel arrived at [facility] and underwent a right knee replacement without complication. She had a spinal anesthetic. Postoperatively she was started back on Xarelto for DVT prophylaxis and transferred to the general orthopedic floors. Her hospital course was uneventful. On postop day #1, her vital signs were stable and her pain was well controlled. She was able to participate well with physical therapy doing ambulation and range of motion exercises. She was then discharged home. She will follow-up with orthopedics in 2 weeks. PG Care Time/CCT Total # of Minutes Spent Total Time Spent with Patient: Total time spent is greater than 50% in coordination of care (as documented) at patient's floor/unit and/or counseling patient: Discharge Plan Discharge Items Patient Disposition: Home - Home Health Services Reason For Visit: Degenerative Joint Disease Right Knee Discharge Diagnosis: Right knee replacement Activity: Per Instructions section Non-emergency contact: Surgeon Call non-emergency contact if: your wound has increased redness and your wound has increased drainage Follow-up/Referrals: Herrera Najera MD [Primary Care Provider] - Diet: Regular Addtl Attending Provider Instructions: Activity and Therapy Recommendations: * If you are using [facility] then therapy will be provided at your home until they feel you have accomplished all of your goals. * If you are using [facility] then Physical Therapy will be provided until they feel you are ready to start Outpatient Physical Therapy. * If you are not using home therapy then Outpatient Physical Therapy should start about 3-5 days from your day of surgery. Therapy will last about 6-10 weeks * It is important not to put a pillow under your knee when you are relaxing or sleeping. It is just as important to make sure you are getting your knee perfectly straight as it is to regain your knee bend. * You were shown a series of exercises in the hospital. Do these exercises three times each day including the exercises you were shown in physical therapy. * Get up and walk several times each day. For the first four weeks, try not to stand or walk for more than one hour at a time. If you do stand or walk for more than one hour, you will not hurt anything, but your leg will likely swell. * As you feel comfortable, you may change from the walker or crutches to a cane and then to independent walking. Medications: * Narcotic You will likely be sent home from the hospital with a prescription for the narcotic pain medication that worked best throughout your stay. * Continue taking your Xarelto as prescribed. * Other medications may be prescribed for specific circumstances. If you have any questions, please call the office at . * Resume previous home medications unless otherwise instructed TEDs/Elastic Stockings: The white elastic stockings help limit swelling and prevent blood clots from forming in your legs.~ The more you wear them, the more they work. Wear them for six weeks. Dressing Care: The dressing can be changed after physical therapy on postop day #1. Daily dry dressing changes for a few days, especially if the incision is still draining some. If the incision is not draining then you may leave the larissa open to air. If there is a little bit of drainage or if the larissa are getting stuck on your clothing then cover the incision with a dry dressing. The larissa will be removed at your 2 week follow-up appointment. Showering: You may shower 5 days from the day of surgery as long as the incision is no longer draining. You may shower with the larissa exposed. Let soapy water run over the larissa and pat them dry. Do not scrub or soak the incision. Things To Watch For: * Drainage from the incision site that occurs more than one week after your surgery. * Increased redness at the incision site. * Fever above 102 degrees Fahrenheit. * Unusual chest pain or shortness of breath. * Call [facility] at with any of the above problems Follow-Up Visit: Follow-up with Dr. Kwan's PA (Orlando Cruz) 2-3 weeks after your day of surgery. He will remove your larissa and answer any questions. If you have any additional questions or concerns, Dr Kwan is usually in the office at the same time and will be available An appointment was probably scheduled when you signed-up for surgery in the office. If you have any questions call Office Instructions: More detailed instructions as well as Frequently Asked Questions were provided in a folder by our office when you signed-up for surgery. Please review these instructions when you get home. If you have any further questions or concerns, please feel free to call the office at [phone] Pending Studies at Discharge: No Stand-Alone Forms: My [facility] [employer], Smoking Cessation Medications and DC Order Prescriptions: New oxycodone 5 mg tablet 5 mg PO Q6H PRN (Reason: pain) Qty: 30 0RF Continued furosemide 20 mg tablet 20 mg PO QAM PRN (Reason: edema) Qty: 30 2RF lisinopril 20 mg tablet 20 mg PO HS Qty: 90 3RF Xarelto 20 mg tablet 20 mg PO HS Qty: 90 3RF Anoro Ellipta 62.5-25 mcg/actuation blister with device 1 inh inhalation DAILY Qty: 90 3RF Saccharomyces boulardii [Daily Probiotic (S. boulardii)] 250 mg capsule 250 mg PO DAILY atorvastatin 10 mg tablet 10 mg PO .3 times wkly Rx Instructions: TAKES AT HS. TAKES MON, WED, & FRI. famotidine [Pepcid] 40 mg tablet 40 mg PO .3 wkly Rx Instructions: TAKES MON, WED, & FRI. pantoprazole 40 mg tablet,delayed release (DR/EC) 40 mg PO .4 times wkly Rx Instructions: TAKES ON SUN, TUES, THURS & SAT. levothyroxine [Synthroid] 175 mcg tablet 175 mcg PO .5 times wkly Rx Instructions: TAKES EVERY DAY EXCEPT WEDNESDAYS & SATURDAYS. diclofenac sodium 75 mg tablet,delayed release (DR/EC) 75 mg PO QAM clindamycin HCl 300 mg capsule 600 mg PO .COMPLEX Qty: 8 3RF Rx Instructions: 600 mg orally 1 dose; 1 hour before dental work melatonin 10 mg capsule 10 mg PO HS PRN (Reason: Sleep) Fiber Gummies 2 gram tablet,chewable 2 g PO DAILY coenzyme Q10 [Co Q-10] 10 mg capsule 10 mg PO DAILY multivitamin Tablet 1 tab PO QAM aspirin 81 mg Tablet,Delayed Release (Dr/Ec) 81 mg PO 3XWK Rx Instructions: TAKES MON, WED, & FRI. acetaminophen [Tylenol Extra Strength] 500 mg Tablet 1,000 mg PO Q8H PRN (Reason: Pain) ascorbic acid (vitamin C) [Vitamin C] 250 mg Tablet,Chewable 500 mg PO DAILY cholecalciferol (vitamin D3) [Vitamin D3] 25 mcg (1,000 unit) Tablet,Chewable 50 mcg PO HS omega 2-phl-knz-fish oil [Fish Oil] 1,000 mg (120 mg-180 mg) Capsule 1 cap PO DAILY turmeric 400 mg Capsule 400 mg PO QAM Admission Data Admit Date/Time: 11/22/22 08:28 Attending Provider: Orlando Kwan Admit Provider: Orlando Kwan Primary Care Provider: Herrera Najera
[2022-11-23] MEDS ORDERED: dexAMETHasone 4 MG TAB PO SCH (08:00)
[2022-11-23] MEDS ORDERED: PANTOprazole 40 MG TAB PO SCH (09:00)
[2022-11-23] MEDS: UMECLIDINIUM/VILANTEROL 62.5/25MCG 7 PUFFS/INHALER INH SCH (09:01)
[2022-11-23] MEDS: MULTIVITAMIN TAB PO SCH (09:02)
[2022-11-23] MEDS: DOCUSATE SODIUM 100 MG CAP PO SCH (09:02)
[2022-11-23] MEDS ORDERED: RIVAROXABAN 20 MG TAB PO SCH (16:30)
== END 2022-11-23 11:30 | disposition home health service (06) ==
LOC: ASU 05:05 → 3E 05:05